=== PATIENT | female | born 1955 | race Caucasian/White ===

== ENCOUNTER → 2020-01-24 11:06 | Outpatient (CLI) | payer MEDICARE, OTHER, SELFPAY ==
--- NOTE | ~2020-01-24 | XR_ITS ---
EXAMINATION: XR sternoclavicular joint BI DATE: 01/24/2020 11:37 INDICATION: Right shoulder pain. Lump at the right sternoclavicular joint. TECHNIQUE: PA and left and right oblique views of the sternoclavicular joints were obtained. COMPARISON: Chest radiograph dated 03/15/2008 FINDINGS: Bilateral sternoclavicular joints appear symmetric in normal alignment. No fractures. No cortical ero sions or appreciable hypertrophic change at either sternoclavicular joint. Visualized bilateral upper lung zones are clear with no pneumothorax. Severe cervical spondylosis. IMPRESSION: 1. Symmetric unremarkable bilateral sternoclavicular joints. Reviewed, dictated and finalized at location A.
== END ==
PROVIDERS: PCP Internal Medicine; Visit Provider Internal Medicine
DX: M25.511 Pain in right shoulder (principal)
CPT/HCPCS: 71130

== ENCOUNTER 2020-03-12 09:33 | Outpatient (CLI) | payer MEDICARE, OTHER, SELFPAY ==
--- NOTE | ~2020-03-12 | MM_ITS ---
EXAMINATION: MM screening herbie BI w oliva HISTORY: Screening TECHNIQUE: Craniocaudal and mediolateral oblique 3-D tomosynthesis images were obtained and synthetic 2-D images were generated. CAD analysis was submitted and interpreted. COMPARISON: Comparison to multiple prior studies sequentially, with oldest reviewed study dated 05/08. BREAST PARENCHYMAL COMPOSITION: There are scattered areas of fibroglandular density. FINDINGS: There is no evidence of suspicious mass, calcification, or architectural distortion to sugg est malignancy in either breast. There has been no suspicious interval change. IMPRESSION: 1. No mammographic evidence of malignancy. 2. Recommend routine screening mammography in one year. BI-RADS Category 1: Negative Reviewed, dictated and finalized at location A.
--- NOTE | ~2020-03-12 | DEXA_ITS ---
Bone Density Report Name: Emma Monteiro Age: 64 Sex: Female Ethnicity: White Date of : 1955 Indication: postmenopausal; Referring Provider: JOHNATHON HEMPHILL Study: Bone densitometry was performed. Exam Date: March 12, 2020 Accession number: [id number] Bone Density: Region BMD T-score Z-score Classification AP Spine (L1, L3) 1.454 4.0 5.8 Normal Femoral Neck (Left) 0.812 -0.3 1.3 Normal Total Hip (Left) 1.081 1.1 2.5 Normal Total Hip Bilateral Avg 1.082 1.1 2.5 Normal Femoral Neck (Right) 0.866 0.2 1.8 Normal Total Hip (Right) 1.082 1.1 2.5 Normal World Health Organization criteria for BMD impression classify patients as: Normal (T-score at or above -1.0), Osteopenia (T-score between -1.0 and -2.5), or Osteoporosis (T-score at or below -2.5). 10-year Fracture Risk: FRAX not reported because: All T-scores for Spine Total, Hip Total, Femoral Neck at or above -1.0 Previous Exams: Region Exam Age BMD T-score BMD Change BMD Change Date g/cm2 vs Baseline vs Previous AP Spine(L1, L3) 03/12/2020 64 1.454 4.0 -0.029(-2.0%)# 0.020(1.4%)# 07/05/2011 56 1.434 3.8 -0.049(-3.3%)# -0.049(-3.3%)# 08/12/2008 53 1.484 4.3 Total Hip(Left) 03/12/2020 64 1.081 1.1 -0.080(-6.9%)# 0.003(0.2%) 05/25/2015 60 1.078 1.1 -0.083(-7.1%)# 0.014(1.3%)# 07/05/2011 56 1.064 1.0 -0.097(-8.4%)# -0.097(-8.4%)# 08/12/2008 53 1.161 1.8 Total Hip(Right) 03/12/2020 64 1.082 1.1 -0.034(-3.0%)# 0.028(2.7%)* 05/25/2015 60 1.054 0.9 -0.062(-5.5%)# -0.016(-1.5%)# 07/05/2011 56 1.070 1.0 -0.046(-4.1%)# -0.046(-4.1%)# 08/12/2008 53 1.116 1.4 *Denotes significance at 95% confidence level, LSC for AP Spine = 0.022 g/cm2, LSC for Total Hip = 0.027 g/cm2 Clinical Information Provided by Patient: Patient maximum height was 62 Menopause Age: 55 Drinks caffeinated beverages Onset of menses at age 10 Number of children 2 Impression: The patient has normal bone mass. No significant bone loss was observed. Discussion: BONE DENSITY IS ABOVE THE MINIMUM DESIRABLE LEVEL AT ALL SKELETAL SITES TESTED. This patient?s bone mineral density is above the minimum desirable level (T-score -1.0 or better) at all sites measured. The patient should follow a healthful lifestyle (good nutrition with adequate calcium and vitamin D, and appropriate weight-bearing exercise). Follow-Up: Consider repeating this study in
== END 2020-03-12 09:34 | disposition home or self-care (01) ==
PROVIDERS: PCP Internal Medicine; Visit Provider Obstetrics & Gynecology
DX: Z12.31 Encounter for screening mammogram for malignant neoplasm of breast (principal); Z78.0 Asymptomatic menopausal state; Z13.820 Encounter for screening for osteoporosis
CPT/HCPCS: 77063; 77067; 77080

== ENCOUNTER → 2020-08-31 06:57 | Outpatient (CLI) | payer MEDICARE, OTHER, SELFPAY ==
[2020-09-01 01:42] LABS: SARS-CoV-2 RNA PCR Negative
== END ==
DX: Z01.812 Encounter for preprocedural laboratory examination (principal); Z20.822 Contact with and (suspected) exposure to COVID-19
CPT/HCPCS: C9803; U0003; U0005

== ENCOUNTER 2021-03-12 09:01 | Outpatient (CLI) | payer MEDICARE, OTHER, SELFPAY ==
--- NOTE | ~2021-03-12 | MM_ITS ---
EXAMINATION: MM screening herbie BI w oliva HISTORY: Screening mammogram, family history of breast cancer in her mother. TECHNIQUE: Craniocaudal and mediolateral oblique 3-D tomosynthesis images were obtained and synthetic 2-D images were generated. CAD analysis was submitted and interpreted. COMPARISON: 03/12/2020, 10/27/2018, 06/09/2017 BREAST PARENCHYMAL COMPOSITION: The breasts are heterogeneously dense, which may obscure small masses . FINDINGS: There is no evidence of suspicious mass, calcification, or architectural distortion to sugg est malignancy in either breast. There has been no suspicious interval change. IMPRESSION: 1. No mammographic evidence of malignancy. 2. Recommend routine screening mammography in one year. BI-RADS Category 1: Negative Reviewed, dictated and finalized at location A.
== END 2021-03-12 09:02 | disposition home or self-care (01) ==
LOC: ANHIMG 09:03
PROVIDERS: Visit Provider Obstetrics & Gynecology
DX: Z12.31 Encounter for screening mammogram for malignant neoplasm of breast (principal)
CPT/HCPCS: 77063; 77067

== ENCOUNTER → 2021-05-14 10:39 | Outpatient (CLI) | payer MEDICARE, OTHER, SELFPAY ==
--- NOTE | ~2021-05-14 | XR_ITS ---
EXAMINATION: XR thoracic spine 3V, XR lumbar spine 2-3V DATE: 05/14/2021 11:05 INDICATION: Diffuse back pain. TECHNIQUE: 1. One AP, lateral and lateral swimmer's views of the thoracic spine were obtained. 2. AP, lateral and coned-down lateral lumbosacral views of the lumbar spine were obtained. COMPARISON: CT abdomen and pelvis dated 05/18/2019 FINDINGS: Unchanged mild thoracolumbar kyphosis with chronic mild anterior wedging at T11-L1. 6 mm retrolisthes is L2 on L3 and 2-3 mm retrolisthesis L3 on L4. Schmorl's node along the superior endplate of L1. Mul tilevel thoracic disc height loss, moderate severity in the upper thoracic spine and mild in the lowe r thoracic spine. Severe disc height loss at L2-L3 and moderate disc height loss at T12-L1 and L3-L4. Mild disc height loss at the remaining lumbar levels. Multilevel severe lumbar facet osteoarthritis. Mild bilateral hip and sacroiliac osteoarthritis. Lungs are clear with no focal airspace opacities, pulmonary edema, pleural effusion or pneumothorax. Cardiomediastinal silhouette is normal. Normal bow el gas pattern. IMPRESSION: 1. Kyphosis at the thoracolumbar junction with chronic mild anterior wedging at T11-L1. 2. Mild to moderate thoracic and moderate to severe lumbar spondylosis. Reviewed, dictated and finalized at location B. E INFORMATICS EDUCATOR IMPRESSION: 1. Kyphosis at the thoracolumbar junction with chronic mild anterior wedging at T11-L1. 2. Mild to moderate thoracic and moderate to severe lumbar spondylosis.
== END ==
PROVIDERS: PCP Internal Medicine; Visit Provider Internal Medicine
DX: R10.9 Unspecified abdominal pain (principal); M47.894 Other spondylosis, thoracic region; M47.896 Other spondylosis, lumbar region
CPT/HCPCS: 72072; 72100

== ENCOUNTER → 2022-04-28 11:15 | Outpatient (CLI) | payer MEDICARE, OTHER, SELFPAY ==
--- NOTE | ~2022-04-28 | MM_ITS ---
EXAMINATION: MM screening herbie BI w oliva HISTORY: Screening mammogram TECHNIQUE: Craniocaudal and mediolateral oblique 3-D tomosynthesis images were obtained and synthetic 2-D images were generated. CAD analysis was submitted and interpreted. COMPARISON: 03/12/2021, 03/12/2020 10/27/2018 bilateral screening mammogram examinations... BREAST PARENCHYMAL COMPOSITION: There are scattered areas of fibroglandular density. FINDINGS: Right breast: There is a new 4 mm mass in the posterior upper outer right breast since 03/12. Diagnostic right mammogram and right breast ultrasound examination are recommended. Left breast: There is no evidence of suspicious mass, calcification, or architectural distortion to s uggest malignancy in either breast. There has been no suspicious interval change. IMPRESSION: 1. New 4 mm mass in posterior upper outer right breast 2. Diagnostic right mammogram and right breast ultrasound examination are recommended BI-RADS Category 0: Incomplete: Needs additional imaging evaluation. Reviewed, dictated and finalized at location A. OYMENT INSTRUCTIONAL ASSOCIATE IMPRESSION: 1. New 4 mm mass in posterior upper outer right breast 2. Diagnostic right mammogram and right breast ultrasound examination are recom mended BI-RADS Category 0: Incomplete: Needs additional imaging evaluation.
== END ==
PROVIDERS: PCP Internal Medicine; Visit Provider Obstetrics & Gynecology
DX: Z12.31 Encounter for screening mammogram for malignant neoplasm of breast (principal); R92.8 Other abnormal and inconclusive findings on diagnostic imaging of breast
CPT/HCPCS: 77063; 77067

== ENCOUNTER 2022-05-27 11:55 | Outpatient (CLI) | payer MEDICARE, OTHER, SELFPAY ==
--- NOTE | ~2022-05-27 | MMUS_ITS ---
EXAMINATION: MM diagnostic herbie RT w oliva, US breast RT limited HISTORY: Right breast mass TECHNIQUE: Additional 3-D tomosynthesis images of the right breast were performed and synthetic 2-D i mages were generated. CAD analysis was submitted and interpreted. High resolution limited right breas t ultrasound was performed. COMPARISON: Comparison to multiple prior studies sequentially, with oldest reviewed study dated 07/2017. BREAST PARENCHYMAL COMPOSITION: Breast composed of scattered areas of fibroglandular density FINDINGS: MAMMOGRAPHIC FINDINGS: There is a mass in the upper outer quadrant of the right breast posteriorly, most likely benign intra mammary lymph node. There is a small mass laterally and anteriorly in the right breast on CC view. ULTRASOUND: Limited right breast ultrasound: At 9:00, 1 cm from the nipple there is a 4 mm cyst corresponding to the anterior mass seen on CC view. No definite sonographic correlate to the mass in the upper outer q uadrant of the right breast measuring 5 mm. IMPRESSION: 1. Probable benign right breast mass in the upper outer quadrant. No sonographic correlate. 2. Recommend 6 month follow-up diagnostic right mammogram BI-RADS category 3, probably benign findings. Reviewed, dictated and finalized at location A. CH LANG PATH IMPRESSION: 1. Probable benign right breast mass in the upper outer quadrant. No sonographi c correlate. 2. Recommend 6 month follow-up diagnostic right mammogram BI-RADS category 3, probably benign findings.
== END 2022-05-27 11:56 | disposition home or self-care (01) ==
PROVIDERS: PCP Internal Medicine; Visit Provider Obstetrics & Gynecology Gynecology
DX: R92.8 Other abnormal and inconclusive findings on diagnostic imaging of breast (principal)
CPT/HCPCS: 76642; 77061; 77065; G0279

== ENCOUNTER 2022-06-27 07:55 | Outpatient (CLI) | payer MEDICARE, OTHER, SELFPAY ==
--- NOTE | ~2022-06-27 | DEXA_ITS ---
Bone Density Report Name: PINKY GARG Age: 67 Sex: Female Ethnicity: Elian Date of : 1955 Indication: postmenopausal; screening for osteoporosis; height loss; Referring Provider: ELIANA CASEY Study: Bone densitometry was performed. Exam Date: June 27, 2022 Accession number: [id number] Bone Density: Region BMD T-score Z-score Classification AP Spine(L1-L4) 1.598 5.0 7.1 Normal Femoral Neck (Left) 0.843 -0.1 1.7 Normal Total Hip (Left) 1.027 0.7 2.2 Normal Femoral Neck (Right) 0.920 0.6 2.4 Normal Total Hip (Right) 1.006 0.5 2.0 Normal Total Hip Mean 1.016 0.6 2.1 Normal World Health Organization criteria for BMD impression classify patients as: Normal (T-score at or above -1.0), Osteopenia (T-score between -1.0 and -2.5), or Osteoporosis (T-score at or below -2.5). 10-year Fracture Risk: FRAX not reported because: All T-scores for Spine Total, Hip Total, Femoral Neck at or above -1.0 Previous Exams: Region Exam Age BMD T-score BMD Change BMD Change Date g/cm2 vs Baseline vs Previous Total Hip(Left) 06/27/2022 67 1.027 0.7 -0.051 (-4.7%) -0.053 (-4.9%) 03/12/2020 64 1.081 1.1 0.003 (0.2%) 0.003 (0.2%) 05/25/2015 60 1.078 1.1 Total Hip(Right) 06/27/2022 67 1.006 0.5 -0.049 (-4.6%) -0.077 (-7.1%) 03/12/2020 64 1.082 1.1 0.028 (2.7%)* 0.028 (2.7%)* 05/25/2015 60 1.054 0.9 *Denotes significance at 95% confidence level, LSC for Total Hip = 0.027 g/cm2 Clinical Information Provided by Patient: Has used the following medications: Vitamin D Patient maximum height was 63 Menopause Age: 55 Onset of menses at age 10 Number of children 2 Impression: The patient has normal bone mass. The BMD for the Total Hip(Left) decreased, changing by -4.9% since the last DXA exam. The BMD for the Total Hip(Right) decreased, changing by -7.1% since the last DXA exam. Discussion: BONE DENSITY IS ABOVE THE MINIMUM DESIRABLE LEVEL AT ALL SKELETAL SITES TESTED. This patient?s bone mineral density is above the minimum desirable level (T-score -1.0 or better) at all sites measured. The patient should follow a healthful lifestyle (good nutrition with adequate calcium and vitamin D, and appropriate weight-bearing exercise). Follow-Up: Consider repeating this study in 3 to 4 years to reassess this patient's status, or sooner if there is some new clinical indication. Reported by: [facility] on 06/27/2022 8:19:00 AM.
== END 2022-06-27 07:56 | disposition home or self-care (01) ==
LOC: ANHIMG 07:57
PROVIDERS: PCP Internal Medicine; Visit Provider Internal Medicine
DX: Z78.0 Asymptomatic menopausal state (principal)
CPT/HCPCS: 77080

== ENCOUNTER 2022-11-20 11:47 | Outpatient (CLI) | payer MEDICARE, OTHER, SELFPAY ==
--- NOTE | ~2022-11-20 | MMUS_ITS ---
EXAMINATION: MM diagnostic herbie RT w oliva, US breast RT limited HISTORY: Six-month follow-up of abnormal mammogram TECHNIQUE: Full field and spot ML, MLO and CC 3-D tomosynthesis images of the right wrist were perfor med and synthetic 2-D images were generated. CAD analysis was submitted and interpreted. High resolut ion targeted posterior upper outer quadrant right breast ultrasound was performed. COMPARISON: 05/27/2022 diagnostic right mammogram and limited right breast ultrasound 04/28/2022, 03/12/2021 bilateral screening mammogram examinations BREAST PARENCHYMAL COMPOSITION: There are scattered areas of fibroglandular density. FINDINGS: MAMMOGRAPHIC FINDINGS: Incompletely circumscribed suspicious 6 mm posterior upper outer quadrant right breast mass is noted. ULTRASOUND: 9:00 1 cm from nipple: Stable parallel benign-appearing circumscribed 3.9 x 1.9 x 3.6 mm solid lesion without internal vascularity or posterior shadowing 11:00 9 cm from nipple: Suspicious and typed-parallel irregular hypoechoic mass measuring approximate ly 4.9 x 6 x 6 mm dimension. This is very suspicious for malignancy. Ultrasound-guided biopsy is blake mmended. IMPRESSION: 1. Suspicious 6 mm mass at 11:00 9 cm from nipple 2. Ultrasound-guided biopsy of right breast 11:00 lesion is recommended BI-RADS category 4, suspicious findings. Dr. Munroe telephoned the report and ultrasound-guided biopsy recommendation for right breast 11:00 les ion on 11/20/2022 at 1255 hours to Nurse Sanders Reviewed, dictated and finalized at location A. IMPRESSION: 1. Suspicious 6 mm mass at 11:00 9 cm from nipple 2. Ultrasound-guided biopsy of right breast 11:00 lesion is recommended BI-RADS category 4, suspicious findings. Dr. Munroe telephoned the report and ultrasound-guided biopsy recommendation for right breast 11:00 lesion on 11/20/2022 at 1255 hours to Nurse Sanders
== END 2022-11-20 11:48 | disposition home or self-care (01) ==
LOC: ANHIMG 11:48
PROVIDERS: PCP Internal Medicine; Visit Provider Obstetrics & Gynecology Gynecology
DX: R92.8 Other abnormal and inconclusive findings on diagnostic imaging of breast (principal)
CPT/HCPCS: 76642; 77061; 77065; G0279

== ENCOUNTER 2023-09-10 15:28 | Emergency (ER) | payer MEDICARE, SELFPAY ==
--- NOTE | 2023-09-10 15:40 | ED.LOWEXIN ---
HPI - Extremity Injury (Lower) General Chief Complaint: Extremity Injury, Lower Stated Complaint: Injured Toe Time Seen by Provider: 09/10/23 16:03 Source: patient, RN notes reviewed and old records reviewed Mode of arrival: ambulatory Limitations: no limitations History of Present Illness HPI Narrative: 68 year old female accompanied by spouse with complaints of stubbing her 2nd right toe on Thursday while they were at [employer]. Patient reports that she is able to move her toe on own power, discomfort is located in nail bed area with nail to 2nd right toe barely attached. Patient reports that she had sandals on and stubbed her toe hitting the nail of her 2nd right toe causing it to get pulled back at the bed. Patient reports that she has been taking Tylenol for her discomfort, Patient has some bruising to her right dorsal distal 2nd toe. Patient voices concern for infection to right 2nd toe. MD complaint: other (right 2nd toe) Onset (ago): day(s) (2 days ago) Injury: Right: toes (right 2nd toe nail barely attached) Type of Injury: other (nail loose right 2nd toe) Place: street/outdoors Severity scale (1-10): 1 Relieving factors: rest Exacerbating factors: palpation Associated symptoms: other (pain) Treatments prior to arrival: other (Tylenol) Related Data Home Medications Medication Instructions Recorded Confirmed anastrozole 1 mg tablet 1 mg PO DAILY 09/10/23 09/10/23 buspirone 7.5 mg tablet 7.5 mg PO DAILY 09/10/23 09/10/23 leflunomide 10 mg tablet 10 mg PO DAILY 09/10/23 09/10/23 losartan 50 mg tablet 50 mg PO DAILY 09/10/23 09/10/23 tramadol 50 mg tablet 50 mg PO Q12H PRN Pain, Moderate 09/10/23 09/10/23 venlafaxine 37.5 mg 37.5 mg PO DAILY 09/10/23 09/10/23 capsule,extended release 24 hr Allergies Allergy/AdvReac Type Severity Reaction Status Date / Time No Known Allergies Allergy Unknown Verified 09/10/23 15:40 Review of Systems Review of Systems: CONSTITUTIONAL: Denies fever, chills, or sweats. EYES: Denies visual changes, redness, or discharge. ENT: Denies rhinorrhea, congestion, sore throat, or otalgia. CARDIOVASCULAR: Denies chest pain, palpitations, or edema. RESPIRATORY: Denies cough or dyspnea. GASTROINTESTINAL: Denies abdominal pain, nausea, vomiting, or diarrhea. GENITOURINARY: Denies dysuria or hematuria. SKIN: Denies rash or itching. Toe nail of right 2nd toe loose at the nail bed, barely attached, patient reports that she is able to move toe on own power with some bruising at the dorsal aspect of distal right 2nd toe above nail bed. MUSCULOSKELETAL: Denies back pain, joint pain, or myalgia. NEUROLOGIC: Denies headache, numbness, or weakness. PSYCHIATRIC: Positive for history of anxiety or depression. All systems reviewed & are unremarkable except as noted in HPI and below PMFSH Past Medical History Medical History Breast cancer Diet-controlled diabetes mellitus History of anxiety Hypertension Rheumatoid arthritis Surgical History Surgical History History of section History of left cataract surgery and retina repair History of partial mastectomy Family History Family History Grandparent Diabetes mellitus Mother Family history of obesity Family history of malignant neoplasm of breast Social History Social History Smoking status: Never smoker Second hand tobacco smoke exposure: No Alcohol intake: current Gender identity (if verbalized by the patient): Female Comments At time of signature, agree with nursing past medical, surgical, social and family history. There is no relevant family history pertinent to the presenting complaint Exam Narrative: GENERAL: Well-appearing, well-nourished, and in no acute distress. HEAD: Normocephalic, atra
[2023-09-10 15:50] VITALS: BP 156/80; PULSE 74; RESP 16; TEMP 36.8; O2SAT 96
== END 2023-09-10 16:13 | disposition home or self-care (01) ==
PROVIDERS: Emergency Provider Registered Nurse; PCP Internal Medicine
DX: S99.921A Unspecified injury of right foot, initial encounter (principal); X58.XXXA Exposure to other specified factors, initial encounter; E11.9 Type 2 diabetes mellitus without complications; I10 Essential (primary) hypertension; M06.9 Rheumatoid arthritis, unspecified; Z85.3 Personal history of malignant neoplasm of breast; Z90.10 Acquired absence of unspecified breast and nipple; F41.9 Anxiety disorder, unspecified
CPT/HCPCS: 11750; 99213; G0463

== ENCOUNTER 2024-06-27 14:49 | Outpatient (CLI) | payer MEDICARE, SELFPAY ==
--- NOTE | ~2024-06-27 | US_ITS ---
EXAMINATION: US thyroid DATE: 06/27/2024 15:08 INDICATION: Left-sided thyroid nodule TECHNIQUE: Multiple ultrasound images of the thyroid were obtained. COMPARISON: None. FINDINGS: The right thyroid lobe measures 5.7 x 2.2 x 2.1 cm. Within the lower pole of the right lobe of the thyroid gland is a 14 x 12 x 15 mm nodule: Composition - mixed cystic and solid (1) Echogenicity -hypoechoic (1) Shape - wider than tall Margin - smooth Echogenic foci - none. = TR2 not suspicious. No FNA Within the lower pole of the right lobe of the thyroid gland is a 11 x 7 x 7 mm nodule: Composition - mixed cystic and solid (1) Echogenicity -hypoechoic (1) Shape - wider than tall Margin - smooth Echogenic foci - none. = TR2 not suspicious. No FNA Within the mid pole of the right lobe of the thyroid gland is a 16 x 15 x 15 mm nodule: Composition - solid or almost completely solid (2) Echogenicity - hyperechoic or isoechoic (1) Shape - wider than tall Margin - smooth Echogenic foci - none. = TR3 mildly suspicious. FNA if greater than 2.5 cm. Follow if greater than 1.5 cm. The left thyroid lobe measures 4.4 x 1.9 x 1.5 cm. Within the mid pole of the left lobe of the thyroid gland is a 17 x 13 x 12 mm nodule: Composition - spongiform Echogenicity - hyperechoic or isoechoic (1) Shape - wider than tall Margin -ill-defined Echogenic foci - none. = TR1 benign, no FNA. The isthmus measures 0.95cm in anterior to posterior dimension. Within the isthmus is a 16 x 15 x 15 mm nodule: Composition - solid or almost completely solid (2) Echogenicity - hyperechoic or isoechoic (1) Shape - wider than tall Margin - smooth Echogenic foci - none. = TR3 mildly suspicious. FNA if greater than 2.5 cm. Follow if greater than 1.5 cm. There is otherwise normal echotexture and echogenicity throughout the remainder of the thyroid gland. No additional discrete nodules are identified. Normal vascular flow is present. IMPRESSION: Two TR2 nodules in the right lobe of the thyroid gland. These nodules are not sonographically suspicious and no FNA is recommended A single TR 1 nodule within the left lobe of the thyroid gland. This nodule is benign. No FNA or follow-up is recommended A single TR 3 nodule is identified within the isthmus measuring 16 mm in greatest dimension. This nodule is mildly suspicious. Follow-up (not FNA) is recommended, based on size criteria. Reviewed, dictated and finalized at location A. ISH MAKER HELPER IMPRESSION: Two TR2 nodules in the right lobe of the thyroid gland. These nodules are not sonographically suspicious and no FNA is recommended A single TR 1 nodule within the left lobe of the thyroid gland. This nodule is benign. No FNA or follow-up is recommended A single TR 3 nodule is identified within the isthmus measuring [address] dimension. This nodule is mildly suspicious. Follow-up (not FNA) is recommended, based on size criteria.
== END 2024-06-27 14:50 | disposition home or self-care (01) ==
PROVIDERS: Visit Provider Internal Medicine
DX: E04.2 Nontoxic multinodular goiter (principal)
CPT/HCPCS: 76536

== ENCOUNTER 2024-09-01 15:00 | Outpatient (CLI) | payer MEDICARE, SELFPAY ==
--- NOTE | ~2024-09-01 | DEXA_ITS ---
Bone Density Report Name: PINKY GARG Age: 69 Sex: Female Ethnicity: Elian Date of : 1955 Indication: postmenopausal; screening for osteoporosis; height loss; cancer; Referring Provider: ELIANA CASEY Study: Bone densitometry was performed. Exam Date: September 01, 2024 Accession number: [id number] Bone Density: Region BMD T-score Z-score Classification AP Spine(L1-L4) 1.614 5.2 7.3 Normal Femoral Neck (Left) 0.832 -0.2 1.7 Normal Total Hip (Left) 1.021 0.6 2.2 Normal Femoral Neck (Right) 0.928 0.7 2.6 Normal Total Hip (Right) 1.029 0.7 2.3 Normal Total Hip Mean 1.025 0.7 2.3 Normal World Health Organization criteria for BMD impression classify patients as: Normal (T-score at or above -1.0), Osteopenia (T-score between -1.0 and -2.5), or Osteoporosis (T-score at or below -2.5). 10-year Fracture Risk: FRAX not reported because: All T-scores for Spine Total, Hip Total, Femoral Neck at or above -1.0 Previous Exams: Region Exam Age BMD T-score BMD Change BMD Change Date g/cm2 vs Baseline vs Previous AP Spine (L1-L4) 09/01/2024 69 1.614 5.2 0.016 (1.0%) 0.016 (1.0%) 06/27/2022 67 1.598 5.0 Total Hip(Left) 09/01/2024 69 1.021 0.6 -0.057 (-5.3%) -0.006 (-0.6%) 06/27/2022 67 1.027 0.7 -0.051 (-4.7%) -0.053 (-4.9%) 03/12/2020 64 1.081 1.1 0.003 (0.2%) 0.003 (0.2%) 05/25/2015 60 1.078 1.1 Total Hip(Right) 09/01/2024 69 1.029 0.7 -0.025 (-2.4%) 0.023 (2.3%) 06/27/2022 67 1.006 0.5 -0.049 (-4.6%) -0.077 (-7.1%) 03/12/2020 64 1.082 1.1 0.028 (2.7%)* 0.028 (2.7%)* 05/25/2015 60 1.054 0.9 *Denotes significance at 95% confidence level, LSC for AP Spine = 0.022 g/cm2, LSC for Total Hip = 0.027 g/cm2 Clinical Information Provided by Patient: Has used the following medications: Vitamin D, Calcium Has the following medical conditions: Cancer Patient maximum height was 63 Menopause Age: 55 Onset of menses at age 10 Number of children 2 Impression: The patient has normal bone mass. No significant bone loss was observed. Discussion: BONE DENSITY IS ABOVE THE MINIMUM DESIRABLE LEVEL AT ALL SKELETAL SITES TESTED. This patient?s bone mineral density is above the minimum desirable level (T-score -1.0 or better) at all sites measured. The patient should follow a healthful lifestyle (good nutrition with adequate calcium and vitamin D, and appropriate weight-bearing exercise). Follow-Up: Consider repeating this study in 5 years or sooner if there is some new clinical indication. Reported by: ERIC on 09/01/2024 3:35:00 PM. Reviewed, dictated and finalized at location AAlejandro COOK
--- OUTSIDE RECORDS SUMMARY | 2024-09-01 15:52 | XMS_ITS | Clinical Summary ---
Author Organization [facility] Address [address] [place] [address] Care Team Providers Care 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 Name Role Phone Cuca Plummer MD Unavailable [phone] Claudia Renee MD Unavailable [phone] Lizzy Lazcano NP Unavailable Kirti Degroot MD PhD Unavaila ble Peter Waters MD Unavailable Elis Staton MD Unavailable Ángel Nino MD Unavailable [phone] Elis Staton MD Primary Care Provider [phone] Gin Gauthier PhD Unavailable [phone] Allergies Active Allergy Reactions Criticality Noted Date Comments Black [place] Hives Medium 12/02/2022 Black Walnuts Husks Wheat Bran Eye irritation Low 09/03/2020 Allergic to wheat plant and the grain Medications losartan (COZAAR) 50 mg tabletIndicati ons:hypertensi on Take 1 tablet (50 mg total) by mouth every morning Active simvastatin (ZOCOR) 20 mg tabletIndicati ons:hyperlipid emia Take 1 tablet (20 mg total) by mouth nightly Active cholecalcifero l (VITAMIN D-3) 1,000 unit capsuleIndicat ions:Vitamin D Deficiency Take 1 capsule (1,000 Units total) by mouth daily after lunch Active cetirizine (ZyrTEC) 10 mg tabletIndicati ons:Allergic Rhinitis Take 1 tablet (10 mg total) by mouth every morning Active traMADoL (ULTRAM) 50 mg tabletIndicati ons:Pain Take 1 tablet (50 mg total) by mouth every 6 (six) hours as needed for pain Active aspirin 81 mg enteric coated tabletIndicati ons:prevention of thrombosis Take 1 tablet (81 mg total) by mouth every other day At night Active calcium carbonate-ramone min D3 1500 mg (600 mg elemental) -200 units per tabletIndicati ons:Hypocalcem ia Prevention Take 1 tablet by mouth every morning Active leflunomide (ARAVA) 10 mg tabletIndicati ons:Rheumatoid Arthritis Take 2 tablets (20 mg total) by mouth daily Active exemestane (AROMASIN) 25 mg tabletIndicati ons:Malignant neoplasm of upper-outer quadrant of right breast in female, estrogen receptor positive (HCC) Take 1 tablet (25 mg total) by mouth daily Take after a meal. 30 tablet 08/26/19 25 026 Active metFORMIN (GLUCOPHAGE) 500 mg tablet Take 1 tablet (500 mg total) by mouth 06/27/19 25 Active EPINEPHrine 0.3 mg/0.3 mL auto-injection syringe As needed 06/23/19 25 Active ondansetron (ZOFRAN) 4 mg tablet As needed 06/23/19 25 Active prednisoLONE sodium phosphate (INFLAMASE FORTE) 1 % ophthalmic solution Administer 1 drop into the right eye 3 (three) times a day Active venlafaxine XR (EFFEXOR-XR) 75 mg 24 hr capsule Take 1 capsule (75 mg total) by mouth daily 90 capsule 08/26/19 25 Active venlafaxine XR (EFFEXOR-XR) 75 mg 24 hr capsule Take 1 capsule (75 mg total) by mouth daily 30 capsule 09/22/19 24 025 Discontinued exemestane (AROMASIN) 25 mg tabletIndicati ons:Malignant neoplasm of upper-outer quadrant of right breast in female, estrogen receptor positive (HCC) Take 1 tablet (25 mg total) by mouth daily Take after a meal. 30 tablet 11/26/19 24 025 Discontinued(Re order) venlafaxine XR (EFFEXOR-XR) 75 mg 24 hr capsule TAKE 1 CAPSULE BY MOUTH DAILY 90 capsule 3 08/17/19 25 025 Discontinued(Re order) Active Problems Problem Noted Date Diagnosed Date History of partial mastectomy of right breast Radiotherapy follow-up examination 04/28/2023 Malignant neoplasm of upper- outer quadrant of right breast in female, estrogen receptor positive 01/26/2023 Cancer Staging:Pathologic stage from 02/13/2023:Stage IA(pT1c, pN0(sn), cM0, G2, ER+, CA+, HER2-) - Signed by Ángel Nino MD on 03/18/2023 Mass of upper outer quadrant of right breast Abnormal mammogram 12/03/2022 Encounters Date Type Department Care Team Description 08/26/[address] [facility] Bone Marrow Transplant [address] [place] [phone] Sindi Dick CMA 08/25/2024 10:00 AM CDT Office Visit 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 Oncology [address] [place] [phone] Malignant neoplasm of upper-outer quadrant of right breast in female, estrogen receptor positive (HCC) 06/27/2024 Orders Only [facility] Scanning, Provider 06/27/2024 Orders Only [facility] INFECTIOUS DISEASE Scanning, Provider from Last 3 Months Immunizations Immunization Administration Dates Next Due COVID-19 MRNA (MODERNA) .5 M L (50 MCG) VACCINE (12 YEARS AND UP) 03/03/2023 Hep B Vaccine 06/07/1997 Influenza, Quad, Adjuvantate d, Intramuscular 02/25/2021,02/12/2020 Influenza, Quadrivalent, Sobeida l Culture-based MDCK, Preservative Free, Antibiotic Free, Intramuscular 03/30/2017 Influenza, Quadrivalent, Hig h Dose, Preservative Free, Intrr 03/24/2022 Influenza, Trivalent, High D ose, Split, Preservative Free, Intramuscular 04/10/2018 Influenza, Trivalent, Preser vative Free, Intramuscular 04/27/2016 Influenza, Unspecified 02/28/2023,03/22/2020,10/2019 Moderna Sars-cov-2 Monovalen t Booster Vaccination .25 Ml dose (12+ YRS) 10/22/2021,04/14/2021 Pfizer SARS-CoV-2 Monovalent Vaccination (12+ Yrs) PURPLE 10/19/2022,03/23/2022 Pneumococcal Conjugate PCV 13 03/21/2020 Pneumococcal Polysaccharide PPV23 03/28/2021 RSV IGIV 06/12/2023 Sars-CoV-2, Unspecified 08/26/2020,07/25/2020 ZOSTER Recombinant 02/12/2020 Zoster, unspecified 02/11/2020,11/17/2019 Surgical History Surgery Date Site/Laterality Comments SECTION 06/08/1978 - 06/07/1979 EYE SURGERY 06/08/2020 - 06/07/2021 Left CATARACT EXTRACTION 06/08/2021 - 06/07/2022 lens placed BREAST BIOPSY 12/17/2022 Right TOENAIL EXCISION 09/10/2023 Right CATARACT EXTRACTION 08/06/2024 - 09/05/2024 Medical History Medical History Date Comments Hypertension Diabetes mellitus (HCC) Overweight Arthritis PONV (postoperative nausea and vomiting) Motion sickness Breast cancer (HCC) Family History Medical History Relation Name Comments Alive 65y , CAD S/p CABG x4 at age 64y Brother 1 Breast cancer Mother M, age 70y, DVT & PE Mother Breast cancer Mother's Sister Liver cancer Paternal Grandfather Alive , 58y, PAD, DVT, S/p H eart Valve Replacement (had fungal infection) Sister Relation Name Status Comments Brother 1 Alive Brother 2 Alive Mother Mother's Sister Paternal Grandfather Sister Alive Social History Tobacco Use Types Packs/Day Years Used Date Smoking Tobacco: Never Smokeless Tobacco: Never Tobacco Cessation:Counseling Given: Not Answered Social Connection and Isolat ion Panel [NHANES] Answer Date Recorded In a typical week, how many times do you talk on the phone with family, friends, or neighbors? More than three times a week 08/24/2024 How often do you get togethe r with friends or relatives? Three times a week 08/24/2024 How often do you attend chur ch or congregational services? 1 to 4 times per year 08/24/2024 Do you belong to any clubs o r organizations such as zoroastrianism groups, unions, fraternal or athletic groups, or school groups? Yes 08/24/2024 How often do you attend meet ings of the clubs or organizations you belong to? 1 to 4 times per year 08/24/2024 Are you , , di vorced, , never , or living with a partner? 08/24/2024 AUDIT-C Answer Date Recorded Q1: How often do you have a drink containing alc ohol? 2-4 times a month 03/19/2023 Q2: How many drinks containi ng alcohol do you have on a typical day when you are drinking? 1 or 2 03/19/2023 Q3: How often do you have si x or more drinks on one occasion? Never 03/19/2023 Overall Financial Resource Strain (CARDIA) Answe r Date Recorded How hard is it for you to pa y for the very basics like food, housing, medical care, and heating? Not hard at all 08/24/2024 PHQ-2 Answer Date Recorded Patient Health Questionnaire-2 Score 0 08/24/2024 [facility] Occupational Stress Questionnaire Answer Date Recorded Do you feel stress - tense, restless, nervous, or anxious, or unable to sleep at night because your mind is troubled all the time - these days? Not at all 08/24/2024 Exercise Vital Sign Answer Date Recorde d On average, how many days pe r week do you engage in moderate to strenuous exercise (like a brisk walk)? 4 days 08/24/2024 On average, how many minutes do you engage in exercise at this level? 30 min 08/24/2024 Hunger Vital Sign Answer Date Recorded Within the past 12 months, y ou worried that your food would run out before you got the money to buy more. Never true 08/25/19 25 Within the past 12 months, t he food you bought just didn't last and you didn't have money to get more. Never true 08/24/2024 PRAPARE - Transportation Answer Date Re corded In the past 12 months, has l ack of transportation kept you from medical appointments or from getting medications? No 08/06 In the past 12 months, has l ack of transportation kept you from meetings, work, or from getting things needed for daily living? No 08/24/2024 Housing Stability Vital Sign Answer Shay e Recorded In the last 12 months, was t here a time when you were not able to pay the mortgage or rent on time? No 08/26/2023 In the last 12 months, how many places have you lived? 1 08/26/2023 In the last 12 months, was t here a time when you did not have a steady place to sleep or slept in a fdc (including now)? No 08/26/2023 Personal Safety Answer Date Recorded Have you ever been in or are you currently in a harmful physical or emotional relationship or is someone making you feel afraid or unsafe? 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 Gender Identity Not on file Sexual Orientation Not on file Obstetrics History Para Term AB IAB SAB Ectopic Multiple Livin g Live Births 3 2 Date Outcome GA Total Labor Labor/2nd/3rd Weight Sex Type Anes PTL Bev A1 A5 Name Clin Para Para Comments Menopause at age 55y Last Filed Vital Signs Vital Sign Reading Time Taken Comments Blood Pressure 121/81 08/25/2024 9:40 AM CDT Pulse 84 08/25/2024 9:40 AM CDT Temperature 36.3 C (97.3 F) 08/25/2024 9:40 AM CDT Respiratory Rate 16 08/25/2024 9:40 AM CDT Oxygen Saturation 95% 08/25/2024 9:40 AM CDT Inhaled Oxygen Concentration - - Weight 73 kg (161 lb) 08/25/2024 9:40 AM CDT Height 154.9 cm (5' 1 ) 08/25/2024 9:40 AM CDT Body Mass Index 30.42 08/25/2024 9:40 AM CDT Plan of Treatment Health Maintenance Due Date Last Done Comments Colon Cancer Screening-Colonoscopy 1955 Osteoporosis Screening-Bone Density Scan 1955 DTaP/Tdap/Td Vaccine (1 - Tdap) 1966 Well Visit 65+ 2018 Zoster Vaccine (2 of 2) 04/08/2020 02/12/20 20, 02/11/2020, 11/17/2019 Covid-19 Vaccine ( season) 2024 03/03/2023, 10/20/2022, 10/19/2022, Additional history exists Influenza Vaccine (#1) 2024 , 03/24/2022, 02/25/2021, Additional history exists Fall Risk Assessment 03/19/2024 03/19/2023, 02/14/20 Breast Cancer Screening-Mammogram 05/26/2025 024, 05/25/2023 Depression Screening 08/25/2025 08/25/2024, 02/25/2024, 11/26/2023, Additional history exists Hepatitis B Screening Completed 06/07/1997 Pneumococcal vaccine 65+ Completed 03/28/2021, 03/08 Hepatitis C Screening Completed 07/07/2023 Medical Devices Implanted Type Area Director Post Device Identifier Shelf Expiration Date Model / Serial / Lot Bard Peripheral Vascular Ultraclip Bard 17ga 10cm 2 Trigger Permanent Ultrasound [id number] - [id number] - [id number] Implanted:Qty: 1 on 12/17/2022 at [facility] [employer] [id number] 05/05/2025 [id number] / [id number] / Description:RIGHT BREAST 110 0 [id number] [employer] Peripheral V[employer] Marker Breast Ring Shape Radiopaque Nitinol Ultracor Twirl [id number] Uctw17 - [id number] - [id number] Implanted:Qty: 1 on 12/17/2022 at [facility] [employer] [id number] 08/05/2025 [id number] / [id number] / Description:RIGHT BREAST 900 5CMFN [employer] Kaycee 20ga 7.5cm 2 Part Stabilizer Repositionable Depth Hany [id number] - [id number] Implanted:Qty: 1 on 02/13/2023 at [facility] Right: Breast [employer] [id number] 02/13/2027 [id number] / / [id number] Procedures Procedure Name Priority Date/Time Associated Diagnosis Comments EGFR Routine 08/25/2024 9:27 AM CDT Malignant neoplasm of upper-outer quadrant of right breast in female, estrogen receptor positive (HCC) DIFFERENTIAL AUTO Routine 08/25/2024 9:2 7 AM CDT Malignant neoplasm of upper-outer quadrant of right breast in female, estrogen receptor positive (HCC) CBC WITH AUTO DIFFERENTIAL Routine 08/25/2024 9:27 AM CDT Malignant neoplasm of upper-outer quadrant of right breast in female, estrogen receptor positive (HCC) COMPREHENSIVE METABOLIC PANEL Routine 08/25/2024 9:27 AM CDT Malignant neoplasm of upper-outer quadrant of right breast in female, estrogen receptor positive (HCC) SCAN - RADIOLOGY/IMAGING 06/27/2024 SCAN - RADIOLOGY/IMAGING 06/27/2024 DIAGNOSTIC MAMMOGRAM BILATERAL W VIK Schedule Routine, Read Routine (OP Routine) 05/26/2024 1:46 PM APPAREL FASHION DESIGNER Malignant neoplasm of upper-outer quadrant of right breast in female, estrogen receptor positive (HCC) History of partial mastectomy of right breast HEPATITIS C ANTIBODY Routine 07/07/2023 9:36 AM APPAREL FASHION DESIGNER from Last 3 Months or Most Recently Relevant to Health Maintenance Results * eGFR (08/25/2024 9:27 AM CDT) eGFR >90 >=60 mL/min/1. 73 m2 Comment: Interpretive Data Reference Interval Normal >/= 90 mL/min/1.73m2 Mildly decreased* 60 - 89 mL/min/1.73m2 Mildly to moderately decreased 45 - 59 mL/min/1.73m2 Moderately to severely decreased 30 - 44 mL/min/1.73m2 Severely decreased 15 - 29 mL/min/1.73m2 Kidney Failure < 15 mL/min/1.73m2 *Relative to young adult level Estimated glomerular filtration rate is determined by the 2020 CKD-EPI equation recommended by the National Kidney Foundation (A Unifying Approach to GFR Estimation: Recommendations of the NKF-ASK Task Force on Reassessing the Inclusion of Race in Diagnosing Kidney Disease, JASN 2020). The CKD-EPI equation should not be used for patients with unstable renal function and has not been validated in children and those over 70. Current interpretive data was last reviewed 2021. Testing performed by: [facility] [place] [place] [address] Blood 08/25/2024 9:27 AM CDT 08/25/2024 9:27 AM CDT us Peter Waters MD LAB BLOOD ORDERAB LES Final Result [facility] [address] Department [place] [address] * Differential, auto (08/25/2024 9:27 AM CDT) Neutrophil abs 2.5 1.5 - 6.5 K/cumm Comment:Testing performed by : [facility] [place] [place] [address] Imm gran abs 0.0 0.0 - 0.1 K/cumm KEVIN Comment:Testing performed by : [facility] [place] [address] Lymphocyte abs 2.0 0.8 - 3.3 K/cumm KEVIN Comment:Testing performed by : [facility] [place] [address] Monocyte abs 0.5 0.2 - 0.8 K/cumm CERLYNN Comment:Testing performed by : [facility] [place] [address] Eosinophil abs 0.2 0.0 - 0.5 K/cumm KEVIN Comment:Testing performed by : [facility] [place] [address] Basophil abs 0.1 0.0 - 0.1 K/cumm CERLYNN Comment:Testing performed by : [facility] [place] [address] Neutrophil pct 47.8 % CERNER CH Comment: Interpretive Data Percent cell count reference ranges are not reported, since discordance with absolute values may lead to misinterpretation of CBC data. Current Interpretive Data was last revised on 2017. Testing performed by: [facility] [place] [address] Imm gran pct 0.2 % CERNER CH Comment: Interpretive Data Percent cell count reference ranges are not reported, since discordance with absolute values may lead to misinterpretation of CBC data. Current Interpretive Data was last revised on 2017. Testing performed by: [facility] [place] [address] Lymphocyte pct 37.2 % CERNER CH Comment: Interpretive Data Percent cell count reference ranges are not reported, since discordance with absolute values may lead to misinterpretation of CBC data. Current Interpretive Data was last revised on 2017. Testing performed by: [facility] [place] [address] Monocyte pct 9.6 % CERNER CH Comment: Interpretive Data Percent cell count reference ranges are not reported, since discordance with absolute values may lead to misinterpretation of CBC data. Current Interpretive Data was last revised on 2017. Testing performed by: [facility] [place] [address] Eosinophil pct 3.9 % CERNER CH Comment: Interpretive Data Percent cell count reference ranges are not reported, since discordance with absolute values may lead to misinterpretation of CBC data. Current Interpretive Data was last revised on 2017. Testing performed by: [facility] [place] [address] Basophil pct 1.3 % CERNER CH Comment: Interpretive Data Percent cell count reference ranges are not reported, since discordance with absolute values may lead to misinterpretation of CBC data. Current Interpretive Data was last revised on 2017. Testing performed by: [facility] [place] [address] Blood 08/25/2024 9:27 AM CDT 08/25/2024 9:27 AM CDT Peter Waters MD LAB BLOOD ORDERAB LES Final Result [facility] [address] Department [place] [address] * CBC with auto differential (08/25/2024 9:27 AM CDT) WBC 5.3 3.8 - 9.9 K/cumm Comment:Testing performed by : [facility] [place] [address] Hgb 12.2 11.9 - 15.5 g/dL CERNER CH Comment:Testing performed by : [facility] [place] [address] Hct 37.3 35.6 - 45.5 % CERNER CH Comment:Testing performed by : [facility] [place] [address] Plt 249 150 - 400 K/cumm CERNER CH Comment:Testing performed by : [facility] [place] [address] MPV 9.9 9.1 - 12.3 fL CERNER CH Comment:Testing performed by : [facility] [place] [address] RBC 4.12 3.90 - 5.20 M/cumm CERNER CH Comment:Testing performed by : [facility] [place] [address] MCV 90.5 81.3 - 96.4 fL CERNER CH Comment:Testing performed by : [facility] [place] [address] MCH 29.6 27.1 - 33.3 pg CERNER CH Comment:Testing performed by : [facility] [place] [address] MCHC 32.7 32.3 - 35.7 g/dL CERNER CH Comment:Testing performed by : [facility] [place] [address] RDW CV 13.6 11.1 - 14.9 % CERNER CH Comment:Testing performed by : [facility] [place] [address] RDW SD 45.0 35.7 - 48.1 fL CERNER CH Comment:Testing performed by : [facility] [place] [place] [address] NRBC abs 0.00 0.00 - 0.01 K/cumm CERNER CH Comment:Testing performed by : [facility] [place] [address] Blood 08/25/2024 9:27 AM CDT 08/25/2024 9:27 AM CDT Peter Waters MD LAB BLOOD ORDERAB LES Final Result [facility] [address] Department [place] [address] * Comprehensive metabolic panel (08/25/2024 9:27 AM CDT) Sodium 139 135 - 145 mmol/L Comment:Testing performed by : [facility] [place] [address] Potassium, pl 4.6 3.3 - 4.9 mmol/L CERNER CH Comment:Testing performed by : [facility] [place] [address] Chloride 102 97 - 110 mmol/L CERNER CH Comment:Testing performed by : [facility] [place] [address] CO2 26 22 - 32 mmol/L CERNER CH Comment:Testing performed by : [facility] [place] [address] Anion gap 11 2 - 15 mmol/L CERNER CH Comment:Testing performed by : [facility] [place] [address] BUN 17 6 - 25 mg/dL CERNER CH Comment:Testing performed by : [facility] [place] [address] Creatinine 0.68 0.60 - 1.10 mg/dL CERNER CH Comment:Testing performed by : [facility] [place] [address] Glucose 158 70 - 199 mg/dL CERNER CH Comment: Interpretive Data Fasting glucose >/= 126 mg/dl is diagnostic for diabetes. Fasting is defined as no caloric intake for at least 8 hours. Fasting glucose between 100 mg/dl to 125 mg/dl is diagnostic of prediabetes. In a patient with classic symptoms of hyperglycemia or hyperglycemic crisis, a random glucose >/= 200 mg/dl is diagnostic for diabetes. In the absence of unequivocal hyperglycemia, results should be confirmed by repeat testing. The classification and Diagnosis of Diabetes Diabetes Care 2021; 46: S19-S40. Current interpretive data was last revised 2022. Testing performed by: [facility] [place] [address] Calcium 9.1 8.5 - 10.3 mg/dL CERNER CH Comment:Testing performed by : [facility] [place] [address] Bilirubin, total 0.8 0.1 - 1.2 mg/dL CERNER CH Comment:Testing performed by : [facility] [place] [address] Protein, pl 6.7 6.5 - 8.5 g/dL CERNER CH Comment:Testing performed by : [facility] [place] [address] Albumin 4.1 3.5 - 5.0 g/dL CERNER CH Comment:Testing performed by : [facility] [place] [address] Alk phos 83 40 - 130 Units/L CERNER CH Comment:Testing performed by : [facility] [place] [address] ALT 24 7 - 45 Units/L CERNER CH Comment:Testing performed by : [facility] [place] [address] AST 26 10 - 45 Units/L CERNER CH Comment:Testing performed by : [facility] [place] [address] Blood 08/25/2024 9:27 AM CDT 08/25/2024 9:27 AM CDT us Peter Waters MD LAB BLOOD ORDERAB LES Final Result [facility] [address] Department [place] [address] * SCAN - RADIOLOGY/IMAGING (06/27/2024) Anatomical Region Laterality Modality Other us Provider Scanning Final Result * SCAN - RADIOLOGY/IMAGING (06/27/2024) Anatomical Region Laterality Modality Other us Provider Scanning Final Result * Diagnostic Mammogram Bilateral W Vik (05/26/2024 1:46 PM APPAREL FASHION DESIGNER) Anatomical Region Laterality Modality Breast Bilateral Mammography 05/26/2024 1:49 PM APPAREL FASHION DESIGNER Impressions 05/26/2024 1:49 PM APPAREL FASHION DESIGNER No evidence of malignancy in either breast. OVERALL FINAL ASSESSMENT: BI-RADS Category 2: Benign. RECOMMENDATION: Annual diagnostic mammography is recommended. Electronically signed by: Kaila Estrada M.D. Narrative 05/26/2024 1:49 PM APPAREL FASHION DESIGNER EXAMINATION: BILATERAL DIGITAL DIAGNOSTIC MAMMOGRAM INCLUDING CAD AND BILATERAL DIGITAL BREAST TOMOSYNTHESIS HISTORY: 69-year-old woman with history of right breast cancer treated with breast conservation therapy in 2022, here for annual surveillance imaging. COMPARISON: Multiple prior studies, most recently 05/25/2023 and dating back to 03/12/2020. TECHNIQUE: Full field digital mammographic views of BOTH breasts were performed, including computer aided detection (CAD) and BILATERAL digital breast tomosynthesis (DBT). BREAST PARENCHYMAL COMPOSITION: There are scattered areas of fibroglandular density. MAMMOGRAM FINDINGS: There are post-treatment changes in the right breast. There is no suspicious mass, distortion, or calcification in either breast. There has been no significant interval change from the previous study. Procedure Note Kaila Estrada MD - 05/26/2024 EXAMINATION: BILATERAL DIGITAL DIAGNOSTIC MAMMOGRAM INCLUDING CAD AND BILATERAL DIGITAL BREAST TOMOSYNTHESIS HISTORY: 69-year-old woman with history of right breast cancer treated with breast conservation therapy in 2022, here for annual surveillance imaging. COMPARISON: Multiple prior studies, most recently 05/25/2023 and dating back to 03/12/2020. TECHNIQUE: Full field digital mammographic views of BOTH breasts were performed, including computer aided detection (CAD) and BILATERAL digital breast tomosynthesis (DBT). BREAST PARENCHYMAL COMPOSITION: There are scattered areas of fibroglandular density. MAMMOGRAM FINDINGS: There are post-treatment changes in the right breast. There is no suspicious mass, distortion, or calcification in either breast. There has been no significant interval change from the previous study. IMPRESSION: No evidence of malignancy in either breast. OVERALL FINAL ASSESSMENT: BI-RADS Category 2: Benign. RECOMMENDATION: Annual diagnostic mammography is recommended. Electronically signed by: Kaila Estrada M.D. Lizzy Lazcano ASSISTANT OFFICE MANAGER IMG MAMMO PROCEDURES Final Result * Hepatitis C antibody Blood (07/07/2023 9:36 AM APPAREL FASHION DESIGNER) Hep C Ab Nonreactive Nonreactive [facility] Comment: Interpretive Data Nonreactive: Antibodies to HCV not detected. Does NOT exclude the possibility of recent exposure to HCV. Equivocal: Equivocal for HCV antibodies. Supplemental molecular testing will be automatically performed to determine infection status in accordance with current CDC screening recommendations. Reactive: Positive for HCV antibodies. This may represent current or past HCV infection. Supplemental molecular testing will be automatically performed to determine current infection status in accordance with current CDC screening recommendations. Interpretive data was last revised on 2019. 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 ADVANCE DIRECTIVE 02/13/2023 7:58 AM Power of Academic Tutor-Medical ADVANCE DIRECTIVE 02/13/2023 7:58 AM Living Will Care Teams 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 Relationship Specialty Start Date End Date Elis Staton MD [address] [facility] [address] [place] [address] PCP - General Radiation Oncology 03/19/23 Cuca Plummer MD [address] [facility] [place] [address] Internal Medicine 11/21/22 Claudia Renee MD [address] [address] Referring Physician Gynecology 12/02/22 Lizzy Lazcano NP [address] [place] [address] Nurse Practitioner Nurse Practitioner 12/22/22 Kirti Degroot MD PhD [address] [address] Surgeon Surgical Oncology 03/02/23 Peter Waters MD [address] [facility], [address] [address] Consulting Physician Medical Oncology 03/02/23 Elis Staton MD [address] [facility] [facility], [address] [address] Radiation Oncologist Radiation Oncology 03/18/23 Ángel Nino MD [address] [place] [address] Resident Radiation Oncology 03/18/23 Gin Gauthier, PhD [address] [facility] [address] [place] [address] Nurse Practitioner Radiation Oncology 04/13/23
--- OUTSIDE RECORDS SUMMARY | 2024-09-01 15:52 | XMS_ITS ---
Author Organization [facility] porter Address [address] [facility] [address] [place] [address] Care Team Providers Care City Library Director Name Role Phone Kaylee Gonzáles Primary Care Provider Joslyn GoldbergJagruti Unavailable [phone] Allergies Allergen (clinical drug ingredient) Drug/Non Drug Allergy documented on EMR Reaction Allergy Type Onset Date Status Black Putney Flavor Unknown Drug Allergy Active lisinopril Lisinopril Unknown Drug Allergy Activ e Psyllium Unknown Drug Allergy Active varicella zoster virus glycoprotein E Shingrix Unknown Drug Allergy Active Results Component Value Reference Range Notes CMP(COMPREHENSIVE METABOLIC PANEL) Reviewed date:08/23/2024 09:56:19 AM Interpretation:Lab Result Generalized Performing Lab:[facility], [address] [place] [address], [address] Notes/Report: Sodium 141 133-146 mmol/L Potassium 4.2 3.5-5.1 mmol/L Chloride 105 98-107 mmol/L Carbon Dioxide 30 21-31 mmol/L Anion Gap 6 4-13 mmol/L Blood Urea Nitrogen 14 7-25 mg/dL Creatinine 0.69 0.60-1.30 mg/dL eGFRcr (CKD-EPI 2020) >90 >=60 mL/min/1.73 m2 Calcium 9.3 8.3-10.5 mg/dL Glucose 135 70-100 mg/dL Protein, Total 6.4 6.4-8.3 g/dL Albumin 4.2 3.5-5.0 g/dL ALT 20 9-43 units/L Alkaline Phosphatase 68 34-104 units/L AST 18 13-39 units/L Bilirubin, Total 0.8 0.2-1.2 mg/dL CBC W/DIFF Reviewed date:08/23/2024 09:56:19 AM Interpretation:Lab Result Generalized Performing Lab:[facility], [address] [facility], [place], [address] Notes/Report: WBC 4.2 3.5-10.5 10'3/uL RBC 4.28 (Based on docume nted legal sex) 3.80-5.20 10'6/uL HGB 12.5 (Based on docume nted legal sex) 11.6-15.4 g/dL HCT 39.3 (Based on docume nted legal sex) 34.0-45.0 % MCV 91.8 80.0-99.0 fL MCH 29.2 27.0-34.0 pg MCHC 31.8 32.0-35.5 g/dL RDW 13.6 11.0-15.0 % PLT 267 150-400 10'3/uL MPV 10.8 8.8-12.1 fL Neutrophils 49.6 34.0-73.0 % Lymphocytes 35.9 15.0-50.0 % Monocytes 9.3 1.0-15.0 % Eosinophils 3.6 0.0-8.0 % Basophils 1.4 0.0-2.0 % Immature Granulocytes 0.2 No defined reference range % Immature Granulocytes (IG) represents automated enumeration of Metamyelocytes, Myelocytes and Promyelocytes when IG is < 5%. Blasts are not included in IG and reported separately if present. Absolute Neutrophils 2.1 1.5-8.0 10'3/uL Absolute Lymphocytes 1.5 1.0-4.0 10'3/uL Absolute Monocytes 0.4 0.2-1.0 10'3/uL Absolute Eosinophils 0.2 0.0-0.6 10'3/uL Absolute Basophils 0.1 0.0-0.3 10'3/uL Absolute Immature Granulocytes 0.0 0.00-0.10 10'3/uL Reference ranges for nonbinary/intersex or unspecified gender patients have not been established. Please refer to the following table for ranges established for cisgender patients and evaluate in the clinical context of the individual patient: [email or web address].nm.org/ [email or web address] REASON FOR VISIT yd/3 month follow up/flc, RA, PCP: Vivienne Manzo MD Medications Medication SIG (Take, Route, Frequency, Duration) Notes Start Date End Date Status Losartan Potassium 50 MG 1 tablet Orally Once a day for 30 day(s) Active Simvastatin 20 MG 1 tablet in the even ing Orally Once a day for 30 day(s) Active Leflunomide 20 MG TAKE 1 TABLET BY ANISH TH ONCE A DAY FOR 30 DAYS for 90 Active Tylenol prn Active Exemestane 25 MG 1 tablet with a meal Orally Once a day for 30 day(s) Active Vitamin D3 25 MCG (1000 UT) 1 capsule Or ally Once a day for 30 day(s) Active Calcium 500 MG 1 tablet with meals Orally Twice a day for 30 day(s) Active ZyrTEC 10 MG 1 tablet Orally Once a day for 30 day(s) Active Aspirin 81 81 MG 1 tablet Orally Once a day for 30 day(s) Active traMADol HCl 50 MG 1 tablet as needed O rally Once a day Active Venlafaxine HCl 75 MG 1 tablet with food Orally Once a day for 30 day(s) Active metFORMIN HCl 500 MG 1 tablet with a adriano l Orally Once a day for 30 day(s) Active Social History Tobacco Use: Social History Observation Description Date Details (start date - stop date) Never Smoker NA - NA Household Question Answer Notes Marital status: Tobacco Control (Standard) Question Answer Notes Tobacco use: Nonsmoker Vital Signs Temperature 98.3 degrees Fahrenheit 08/23/19 25 Blood pressure systolic 132 mm Hg 08/23/19 25 Blood pressure diastolic 80 mm Hg 025 Heart Rate 89 /min 08/22/2024 Height 62 in 08/22/2024 Weight 162.2 lbs 08/22/2024 BMI 29.66 kg/m2 08/22/2024 Oximetry 95 % 08/22/2024 Height-cm 157.48 cm 08/22/2024 Weight-kg 73.57 kg 08/22/2024 Encounters Encounter Location Date Provider Diagnosis [facility] [address] [facility] [address] [place] [address] 08/22/2024 Jagruti Goldberg Other rheumatoid arthritis with rheumatoid factor of multiple sites M05.89 ; Osteoarthritis, unspecified osteoarthritis type, unspecified site M19.90 ; High risk medication use Z79.899 and History of retinopathy Z86.69 Assessments Encounter Date Diagnosis (ICD Code) Assessment Notes Treatment Notes Treatment Clinical Notes Section Notes 08/22/2024 Other rheumatoid arthritis with rheumatoid factor of multiple sites (ICD-10 - M05.89) mildly symptomatic, continue arava, labs today, return in 3 months avoid plaquenil due to hx of retinopathy 08/22/2024 Osteoarthritis, unspecified osteoarthritis type, unspecified site (ICD-10 - M19.90) mildly symptomatic, continue arava, labs today, return in 3 months avoid plaquenil due to hx of retinopathy 08/22/2024 High risk medication use (ICD-10 - Z79.899) mildly symptomatic, continue arava, labs today, return in 3 months avoid plaquenil due to hx of retinopathy 08/22/2024 History of retinopathy (ICD-10 - Z86.69) mildly symptomatic, continue arava, labs today, return in 3 months avoid plaquenil due to hx of retinopathy Plan Of Treatment Next Appt Details Follow Up: 3 Months, Reason: Provider Name:Jagruti Goldberg, 11/21 10:45:00 AM, [address], [address], [address], Progress Notes * Kandis MONTEIROhDOB: 3 (69 yo F)Acc No.[id number]:08/22/2024 Progress Notes Patient: Emma BARBER Provider: Praveen GOLDBERG MD :1955 A ge:69 Y S ex:Female Date:08/22/2024 Address:[address] [place] [address] [facility] Subjective: * Chief Complaints: * Y d/3 month follow up/flcRAPCP: Vivienne Manzo MD * HPI: j oint pain: on arava 20mg/day, helping, hands better, feet ache in the morning and at night, am stiffness: a fe wminutes 07/07/2023, SSA/SSB (-), ESR and CRP normal, CMP normal except for total bilirubin 1.4, CBC normal, HBV/HCV (-), Xrays of hands: osteoarthritis, Xrays of left shoulder: osteoarthritis. Xrays of feet: osteoarthritis an calcaneal spurs 06/18/2023, RF 68, CCP (-), TSH normal She has a history of breast cancer, off anastrozole, on exemestane sister: RA. * ROS: G eneral / Constitutional: Patient denies f guido, chills. P atient complains of?fatigue. M usculoskeletal: Patient complains of s ee HPI. S kin: Patient denies r kendrick. * Medical History: * Surgical History: C section, vitrectomy, cataract, partial mastectomy * Hospitalization/Major Diagno stic Procedure: * Family History: pulmonary emboli, breast cancer, epilepsy, hypertension, diabetes, dementia. * Social History: T obacco Use: T obacco Control (Standard) T obacco use: N onsmoker. D rug/Alcohol: D o you drink alcohol?: 0-1 drinks a week. H ousehold: H ousehold M arital status: m arried. M iscellaneous: E xercise: Walking and stationary bike. * Medications: T akingmetFORMIN HCl 500 MG Tablet 1 tablet with a meal Orally Once a day Venlafaxine HCl 75 MG Tablet 1 tablet with food Orally Once a day traMADol HCl 50 MG Tablet 1 tablet as needed Orally Once a day Aspirin 81 81 MG Tablet Delayed Release 1 tablet Orally Once a day ZyrTEC 10 MG Tablet Chewable 1 tablet Orally Once a day Calcium 500 MG Tablet 1 tablet with meals Orally Twice a day Vitamin D3 25 MCG (1000 UT) Capsule 1 capsule Orally Once a day Simvastatin 20 MG Tablet 1 tablet in the evening Orally Once a day Losartan Potassium 50 MG Tablet 1 tablet Orally Once a day Exemestane 25 MG Tablet 1 tablet with a meal Orally Once a day Tylenol prn Leflunomide 20 MG Tablet TAKE 1 TABLET BY MOUTH ONCE A DAY FOR 30 DAYS Medication List reviewed and reconciled with the patientTaking metFORMIN HCl 500 MG Tablet 1 tablet with a meal Orally Once a day Taking Venlafaxine HCl 75 MG Tablet 1 tablet with food Orally Once a day Taking traMADol HCl 50 MG Tablet 1 tablet as needed Orally Once a day Taking Aspirin 81 81 MG Tablet Delayed Release 1 tablet Orally Once a day Taking ZyrTEC 10 MG Tablet Chewable 1 tablet Orally Once a day Taking Calcium 500 MG Tablet 1 tablet with meals Orally Twice a day Taking Vitamin D3 25 MCG (1000 UT) Capsule 1 capsule Orally Once a day Taking Simvastatin 20 MG Tablet 1 tablet in the evening Orally Once a day Taking Losartan Potassium 50 MG Tablet 1 tablet Orally Once a day Taking Exemestane 25 MG Tablet 1 tablet with a meal Orally Once a day Taking Tylenol prn Taking Leflunomide 20 MG Tablet TAKE 1 TABLET BY MOUTH ONCE A DAY FOR 30 DAYS Medication List reviewed and reconciled with the patient * Allergies: S hingrixLisinoprilPsylliumBlack Putneypresley Marmolejono[Allergies Verified] Objective: * Vitals: B P:132/80mm Hg, HR:89/min, Temp:98.3F, Oxygen sat %:95%, Wt:162.2lbs, Wt- k.57kg, Ht:62in, Ht-cm:157.48cm, BMI:29.66Index, Body Surface Area:1.79. * Examination: G eneral Examination: General appearance: a lert, well-nourished and in no acute distress. Head: n ormocephalic, atraumatic. Eyes: n ormal. Skin: n o rash. Lungs: r espiratory effort normal. N eurology: Speech: n ormal. P sychiatry: Affect / mood: a ppropriate. R heumatology: b il MTPs tender. Assessment: * Assessment: 1. O ther rheumatoid arthritis with rheumatoid factor of multiple sites - M05.89 (Primary) 2 . O steoarthritis, unspecified osteoarthritis type, unspecified site - M19.90 3 . H igh risk medication use - Z79.899 4 . H istory of retinopathy - Z86.69 mildly symptomatic, continue arava, labs today, return in 3 months avoid plaquenil due to hx of retinopathy Plan: * Treatment: * Procedure Codes: * Follow Up: 3 Months * Billing Information: * Visit Code: 75257 Office Visit, Est Pt., Level 4. * Procedure Codes: Images * PatientLetter 08/23/2024 09: 56:20 * Sign off status: Completed true * Provider: Praveen GOLDBERG MD Date: 0 08/22/2024 Generated for Yari markham/Chasity/Madhu on: 0 09/01/2024 03:52 PM CDT History and Physical Notes * HPI (History of Present Illness) Category Sub-Category Detail Notes Category Not es joint pain on arava 20mg/day, helping, hands better, feet ache in the morning and at night, am stiffness: a fe wminutes 07/07/2023, SSA/SSB (-), ESR and CRP normal, CMP normal except for total bilirubin 1.4, CBC normal, HBV/HCV (-), Xrays of hands: osteoarthritis, Xrays of left shoulder: osteoarthritis. Xrays of feet: osteoarthritis an calcaneal spurs 06/18/2023, RF 68, CCP (-), TSH normal She has a history of breast cancer, off anastrozole, on exemestane sister: RA Examination Category Sub-Category Detail Notes Category Not es Rheumatology miguel MTPs tender Neurology Speech: normal Psychiatry Affect / mood: appropriate General Examination General appearance: alert, w ell-nourished and in no acute distress Head: normocephalic, atrau matic Eyes: normal Lungs: respiratory effort n ormal Skin: no rash
--- OUTSIDE RECORDS SUMMARY | 2024-09-01 15:52 | XMS_ITS | Encounter Summary ---
Author Organization [facility] Address [address] [place] [address] Phone Care Team Providers Care Director Biology Name Role Phone Cuca Plummer MD Unavailable [phone] Claudia Renee MD Unavailable [phone] Lizzy Lazcano NP Unavailable [phone] Kirti Degroot MD PhD Unavaila ble Peter Waters MD Unavailable Elis Staton MD Unavailable Ángel Nino MD Unavailable [phone] Elis Staton MD Primary Care Provider [phone] Gin Gauthier PhD Unavailable [phone] Encounter Details Date Type Department Care Team (Latest Contact Info) Description 06/27/2024 Orders Only [facility] Scanning, Provider Social History Tobacco Use Types Packs/Day Years Used Date Smoking Tobacco: Never Smokeless Tobacco: Never Social Connection and Isolat ion Panel [NHANES] Answer Date Recorded In a typical week, how many times do you talk on the phone with family, friends, or neighbors? More than three times a week 02/24/2024 How often do you get togethe r with friends or relatives? More than three times a week 02/24/2024 How often do you attend chur or baptist services? 1 to 4 times per year 02/24/2024 Do you belong to any clubs o r organizations such as adventist groups, unions, fraternal or athletic groups, or school groups? Yes 02/24/2024 How often do you attend meet ings of the clubs or organizations you belong to? 1 to 4 times per year 02/24/2024 Are you , , di vorced, , never , or living with a partner? 02/24/2024 AUDIT-C Answer Date Recorded Q1: How often [...] care, and heating? Not hard at all 02/24/2024 PHQ-2 Answer Date Recorded Patient Health Questionnaire-2 Score 0 02/24/2024 [facility] - Occupational Stress Questionnaire Answer Date Recorded Do you feel stress - tense, restless, nervous, or anxious, or unable to sleep at night because your mind is troubled all the time - these days? Not at all 02/24/2024 Exercise Vital Sign Answer Date Recorde d On average, how many days pe r week do you engage in moderate to strenuous exercise (like a brisk walk)? 5 days 02/24/2024 On average, how many minutes do you engage in exercise at this level? 60 min 02/24/2024 Hunger Vital Sign Answer Date Recorded Within the past 12 months, y ou worried that your food would run out before you got the money to buy more. Never true 02/24/20 24 Within the past 12 months, t he food you bought just didn't last and you didn't have money to get more. Never true 02/24/2024 PRAPARE - Transportation Answer Date Re corded In the past 12 months, has l ack of transportation kept you from medical appointments or from getting medications? No 02/06 In the past 12 months, has l ack of transportation kept you from meetings, work, or from getting things needed for daily living? No 02/24/2024 Housing Stability Vital Sign Answer Shay e [...] place to sleep or slept in a custodial (including now)? No 08/26/2023 Personal Safety Answer Date Recorded Have you ever been in or are you currently in a harmful physical or emotional relationship or is someone making you feel afraid or unsafe? 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 Gender Identity Not on file Sexual Orientation Not on file documented as of this encounter Plan of Treatment Not on file documented as of this encounter Procedures Procedure Name Priority Date/Time Associated Diagnosis Comments SCAN - RADIOLOGY/IMAGING 06/27/2024 documented in this encounter Results * SCAN - RADIOLOGY/IMAGING (06/27/2024) Anatomical Region Laterality Modality Other us Provider Scanning Final Result documented in this encounter Visit Diagnoses Not on filedocumented in this encounter Care Teams Director Biology Relationship Specialty Start Date End Date Elis Staton MD [address] [facility] [address] [place] [address] PCP - General Radiation Oncology 03/19/23 Cuca Plummer MD COUNTRY [facility] [place] [address] Internal Medicine 11/21/22 Claudia Renee MD [address] [address] Referring Physician Gynecology 12/02/22 Lizzy Lazcano NP [address] [address] Nurse Practitioner Nurse Practitioner 12/22/22 Kirti Degroot MD PhD [address] [place] [address] Surgeon Surgical Oncology 03/02/23 Peter Waters MD [address] [facility], [address] [address] Consulting Physician Medical Oncology 03/02/23 Elis Staton MD [address] [facility], [address] [address] Radiation Oncologist Radiation Oncology 03/18/23 Ángel Nino MD [address] [place], [place] [id number] Resident Radiation Oncology 03/18/23 Gin Gauthier, PhD [address] [facility] [address] [place] [address] Nurse Practitioner Radiation Oncology 04/13/23 documented as of this encounter
--- OUTSIDE RECORDS SUMMARY | 2024-09-01 15:53 | XMS_ITS | Encounter Summary ---
Author Organization [facility] Healthcare Address [address] [place] [address] Care Team Providers Care Computer Language Coder Name Role Phone Unavailable Primary Care Provider Unavailabl e Reason for Visit * Diagnostic Imaging (Routine) - Closed Specialty Diagnoses / Procedures Referred By Kal beltre Referred To Contact Procedures Breast Imaging Screening Outside Reference Lizzy Lazcano NP Phone: tel: fax: Referral ID Status Reason Start Date Expiration Date Visits Re quested Visits Authorized [id number] Closed 11/28/2022 12/28/2023 1 1 Encounter Details Date Type Department Care Team (Late st Contact Info) Description 03/12/2020 Hospital Encounter [facility] [address] [place] [phone] Social History Tobacco Use Types Packs/Day Years [...] often do you attend chur ch or temple services? 1 to 4 times per year 08/24/2024 Do you belong to any clubs o r organizations such as baptist groups, unions, fraternal or athletic groups, or [...] Questionnaire-2 Score 0 08/24/2024 [facility] - Occupational Stress Questionnaire Answer Date Recorded [...] place to sleep or slept in a long-term (including now)? No 08/26/2023 Personal Safety Answer Date Recorded Have you ever been in or are you currently in a harmful physical or emotional relationship or is someone making you feel afraid or unsafe? 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 2-4 times a month 03/19/2023 10:00 AM Neetu Garcia RN Q2: How many drinks containing alcohol do you have on a typical day when you are drinking? 1 or 2 03/19/2023 10:00 AM Neetu Garcia RN Q3: How often do you have six or more drinks on one occasion? Never 03/19/2023 10:00 AM Neetu Garcia RN * Over the past 2 weeks, how often have you been bothered by any of the following problems? Question Answer Date of Assessment Author Patient Health Questionnaire-2 Score 0 08/24/2024 5:16 PM CDT Interface, Ambu latory Doc Flowsheet In * Little interest or pleasure in doing things Answer Date of Assessment Author Not at all 08/24/2024 5:16 PM CDT Interface , Ambulatory Doc Flowsheet In * Feeling down, depressed, or hopeless Answer Date of Assessment Author Not at all 08/24/2024 5:16 PM CDT Interface , Ambulatory Doc Flowsheet In documented as of this encounter Plan of Treatment Not on file documented as of this encounter Procedures Procedure Name Priority Date/Time Associated Diagnosis Comments BREAST IMAGING MG SCREENING OUTSIDE REFERENCE Routine 03/12/2020 12:00 AM CDT documented in this encounter Results * Breast Imaging Screening Outside Reference (03/12/2020 12:00 AM CDT) Impressions [facility] - 11/28/2022 12:33 PM CDT These images are for Reference purposes only and have not been reviewed by [facility] Radiology. There will be no report generated by a [facility] Radiologist. Narrative [facility] - 11/28/2022 12:33 PM CDT EXAMINATION: Images For Reference Purposes Only us Lizzy Lazcano NP IMG MAMMO PROCEDURES Final Result [facility] documented in this encounter Visit Diagnoses Not on filedocumented in this encounter
--- OUTSIDE RECORDS SUMMARY | 2024-09-01 15:53 | XMS_ITS ---
Author Organization [facility] Address [address] [place] [address] Care Team Providers Care Van Driver Helper Name Role Phone Cuca Plummer MD Unavailable [phone] Claudia Renee MD Unavailable [phone] Lizzy Lazcano NP Unavailable [phone] Kirti Degroot MD PhD Unavaila ble Peter Waters MD Unavailable Elis Staton MD Unavailable Ángel Nino MD Unavailable [phone] Elis Staton MD Primary Care Provider [phone] Gin Gauthier PhD Unavailable [phone] Active Problems Problem Noted Date Diagnosed Date History of partial mastectomy of right breast Radiotherapy follow-up examination 04/28/2023 Malignant neoplasm of upper- outer quadrant of right breast in female, estrogen receptor positive 01/26/2023 Cancer Staging:Pathologic stage from 02/13/2023:Stage IA(pT1c, pN0(sn), cM0, G2, ER+, WI+, HER2-) - Signed by Ángel Nino MD on 03/18/2023 Mass of upper outer quadrant of right breast Abnormal mammogram 12/03/2022 Current Treatment and Therapy Plans No current plan information found. Past Treatment and Therapy Plans No past plan information found. Radiation Treatments * Course [id number]_202204/09/2023 - 04/09/2023 Treatment Period Energy Fraction Dose Fractions Total Dose Plans Planned RT APBI 04/09/2023 - 04/09/2023 2,000 Reference Points Delivered PTV_SURG_BED 04/09/2023 - 04/09/2023 2,000
--- OUTSIDE RECORDS SUMMARY | 2024-09-01 15:53 | XMS_ITS ---
Author Organization [facility] Address [address] [place] [address] Care Team Providers Care Tobacco Drier Operator Name Role Phone Kaylee Gonzáles Primary Care Provider Joslyn GoldbergJagruti Unavailable [phone] Allergies Allergen (clinical drug ingredient) Drug/Non Drug Allergy documented on EMR Reaction Allergy Type Onset Date Status [place] Flavor Unknown Drug Allergy Active lisinopril Lisinopril Unknown Drug Allergy Activ e Psyllium Unknown Drug Allergy Active varicella zoster virus glycoprotein E Shingrix Unknown Drug Allergy Active Results Component Value Reference Range Notes CBC W/DIFF Reviewed date:05/24/2024 04:50:46 PM Interpretation:Lab Result Generalized Performing Lab:[facility], [address] [place] [address], [address] Notes/Report: WBC 3.2 3.5-10.5 10'3/uL RBC 4.29 (Based on docume nted legal sex) 3.80-5.20 10'6/uL HGB 12.5 (Based on docume nted legal sex) 11.6-15.4 g/dL HCT 39.9 (Based on docume nted legal sex) 34.0-45.0 % MCV 93.0 80.0-99.0 fL MCH 29.1 27.0-34.0 pg MCHC 31.3 32.0-35.5 g/dL RDW 13.7 11.0-15.0 % PLT 271 150-400 10'3/uL MPV 11.1 8.8-12.1 fL NRBC's 0.0 0.0 % Absolute NRBCs 0.0 No reference ran ge established 10'3/uL Neutrophils 41.3 34.0-73.0 % Lymphocytes 42.6 15.0-50.0 % Monocytes 9.8 1.0-15.0 % Eosinophils 4.1 0.0-8.0 % Basophils 1.9 0.0-2.0 % Immature Granulocytes 0.3 No defined reference range % Absolute Neutrophils 1.3 1.5-8.0 10'3/uL Absolute Lymphocytes 1.4 1.0-4.0 10'3/uL Absolute Monocytes 0.3 0.2-1.0 10'3/uL Absolute Eosinophils 0.1 0.0-0.6 10'3/uL Absolute Basophils 0.1 0.0-0.3 10'3/uL Absolute Immature Granulocytes 0.0 0.00-0.10 10'3/uL 05/24/2024 8:11 AM: P indicates partial results on a panel have been released. Additional results will follow. 05/24/2024 8:11 AM: This result has been final verified. No additional or changed results are expected. CMP(COMPREHENSIVE METABOLIC PANEL) Reviewed date:05/24/2024 04:50:45 PM Interpretation:Lab Result Generalized Performing Lab:[facility], [address], [place], [address] Notes/Report: Sodium 138 133-146 mmol/L Potassium 4.2 3.5-5.1 mmol/L Chloride 105 98-107 mmol/L Carbon Dioxide 25 21-31 mmol/L Anion Gap 8 4-13 mmol/L Blood Urea Nitrogen 13 7-25 mg/dL Creatinine 0.67 0.60-1.30 mg/dL eGFRcr (CKD-EPI 2020) >90 >=60 mL/min/1.73 m2 Calcium 9.3 8.3-10.5 mg/dL Glucose 175 70-100 mg/dL Protein, Total 6.4 6.4-8.3 g/dL Albumin 4.1 3.5-5.0 g/dL ALT 25 9-43 units/L Alkaline Phosphatase 68 34-104 units/L AST 23 13-39 units/L Bilirubin, Total 1.1 0.2-1.2 mg/dL REASON FOR VISIT yd/3 month follow up/flc, RA, referred by Cuca Plummer [place] [address] Medications Medication SIG (Take, Route, Frequency, Duration) Notes Start Date End Date Status traMADol HCl 50 MG 1 tablet as needed O rally Once a day Active Aspirin 81 81 MG 1 tablet Orally Once a day for 30 day(s) Active ZyrTEC 10 MG 1 tablet Orally Once a day for 30 day(s) Active Calcium 500 MG 1 tablet with meals Orally Twice a day for 30 day(s) Active Vitamin D3 25 MCG (1000 UT) 1 capsule Or ally Once a day for 30 day(s) Active Exemestane 25 MG 1 tablet with a meal Orally Once a day for 30 day(s) Active Leflunomide 20 MG TAKE 1 TABLET BY ANISH TH ONCE A DAY FOR 30 DAYS for 90 Active Tylenol prn Active Venlafaxine HCl 75 MG 1 tablet with food Orally Once a day for 30 day(s) Active Simvastatin 20 MG 1 tablet in the even ing Orally Once a day for 30 day(s) Active Losartan Potassium 50 MG 1 tablet Orally Once a day for 30 day(s) Active Social History Tobacco Use: Social History Observation Description Date Details (start date - stop date) Never Smoker NA - NA Household Question Answer Notes Marital status: Tobacco Control (Standard) Question Answer Notes Tobacco use: Nonsmoker Vital Signs Temperature 98.2 degrees Fahrenheit 05/23/20 24 Blood pressure systolic 148 mm Hg 05/23/20 24 Blood pressure diastolic 88 mm Hg 024 Heart Rate 88 /min 05/23/2024 Height 62 in 05/23/2024 Weight 163.0 lbs 05/23/2024 BMI 29.81 kg/m2 05/23/2024 Oximetry 94 % 05/23/2024 Height-cm 157.48 cm 05/23/2024 Weight-kg 73.92 kg 05/23/2024 Encounters Encounter Location Date Provider Diagnosis [facility] [address] [place] [address] 05/23/2024 Jagruti Goldberg Other rheumatoid arthritis with rheumatoid factor of multiple sites M05.89 ; Osteoarthritis, unspecified osteoarthritis type, unspecified site M19.90 ; High risk medication use Z79.899 and History of retinopathy Z86.69 Assessments Encounter Date Diagnosis (ICD Code) Assessment Notes Treatment Notes Treatment Clinical Notes Section Notes 05/23/2024 Other rheumatoid arthritis with rheumatoid factor of multiple sites (ICD-10 - M05.89) mildly symptomatic, continue arava, labs today, return in 3 months avoid plaquenil due to hx of retinopathy 05/23/2024 Osteoarthritis, unspecified osteoarthritis type, unspecified site (ICD-10 - M19.90) mildly symptomatic, continue arava, labs today, return in 3 months avoid plaquenil due to hx of retinopathy 05/23/2024 High risk medication use (ICD-10 - Z79.899) mildly symptomatic, continue arava, labs today, return in 3 months avoid plaquenil due to hx of retinopathy 05/23/2024 History of retinopathy (ICD-10 - Z86.69) mildly symptomatic, continue arava, labs today, return in 3 months avoid plaquenil due to hx of retinopathy Plan Of Treatment Next Appt Details Follow Up: 3 Months, Reason: Provider Name:Jagruti Goldberg, 11/21 10:45:00 AM, [address], [address], [address], Progress Notes * Kandis MONTEIROhDOB: 3 (69 yo F)Acc No.[id number]:05/23/2024 Progress Notes Patient: Emma BARBER Provider: Praveen GOLDBERG MD :1955 A ge:69 Y S ex:Female Date:05/23/2024 [facility] Pcp:Cuca Plummer Subjective: * Chief Complaints: * Y d/3 month follow up/flcRAreferred by [facility] [address] * HPI: j oint pain: on arava 20mg/day, helping, R knee and SI joints bother her sometimes, heating pad has helped, am stiffness: varies 07/07/2023, SSA/SSB (-), ESR and CRP normal, [...] Walking and stationary bike. * Medications: T akingVenlafaxine HCl 75 MG Tablet 1 tablet with [...] with a meal Orally Once a day Leflunomide 20 MG Tablet TAKE 1 TABLET BY MOUTH ONCE A DAY FOR 30 DAYS Tylenol prn Taking Venlafaxine HCl 75 MG Tablet 1 [...] a meal Orally Once a day Taking Leflunomide 20 MG Tablet TAKE 1 TABLET BY MOUTH ONCE A DAY FOR 30 DAYS Taking Tylenol prn DiscontinuedTylenol Arthritis Pain Medication List reviewed and reconciled with the patientDiscontinued Tylenol Arthritis Pain Medication List reviewed and reconciled with the patient * Allergies: S hingrixLisinoprilPsylliumBlack Rogers Jaleelno[Allergies Verified] Objective: * Vitals: B P:148/88mm Hg, HR:88/min, Temp:98.2F, Oxygen sat %:94%, Wt:163.0lbs, Wt- k.92kg, Ht:62in, Ht-cm:157.48cm, BMI:29.81Index, Body Surface Area:1.8. * Examination: G eneral Examination: General appearance: a lert, well-nourished and in no acute distress. Head: n ormocephalic, atraumatic. Eyes: n ormal. Skin: n o rash. Lungs: r espiratory effort normal. N eurology: Speech: n ormal. P sychiatry: Affect / mood: a ppropriate. R heumatology: R 2nd and 3rd MCP tender, R wrist tender, no obvious swelling, lumbar area tender. Assessment: * Assessment: 1. O ther [...] Months * Billing Information: * Visit Code: 28789 Office Visit, Est Pt., Level 4. * Procedure Codes: Images * PatientLetter 05/24/2024 16: 50:46 * RVISOR SCREEN PRINTING Sign off status: Completed true * Provider: Praveen GOLDBERG MD Date: 1 07/24/2023 Generated for Yari markham/Chasity/eTransmitting on: 0 09/01/2024 03:52 PM CDT History and Physical Notes * HPI (History of Present Illness) Category Sub-Category Detail Notes Category Not es joint pain on arava 20mg/day, helping, R knee and SI joints bother her sometimes, heating pad has helped, am stiffness: varies 07/07/2023, SSA/SSB (-), ESR and CRP normal, CMP normal except for total bilirubin 1.4, CBC normal, HBV/HCV (-), Xrays of hands: osteoarthritis, Xrays of left shoulder: osteoarthritis. Xrays of feet: osteoarthritis an calcaneal spurs 06/18/2023, RF 68, CCP (-), TSH normal She has a history of breast cancer, off anastrozole, on exemestane sister: RA Examination Category Sub-Category Detail Notes Category Not es Rheumatology R 2nd and 3rd MCP tender, R wrist tender, no obvious swelling, lumbar area tender Neurology Speech: normal Psychiatry Affect / mood: appropriate General Examination General appearance: alert, w ell-nourished and in no acute distress Head: normocephalic, atrau matic Eyes: normal Lungs: respiratory effort n ormal Skin: no rash
--- OUTSIDE RECORDS SUMMARY | 2024-09-01 15:53 | XMS_ITS ---
Author Organization [facility] Address [address] [place] [address] Care Team Providers Care Paper Feeder Name Role Phone Kaylee Gonzáles Primary Care Provider Joslyn GodlbergJagruti Unavailable [phone] Allergies Allergen (clinical drug ingredient) Drug/Non Drug Allergy documented on EMR Reaction Allergy Type Onset Date Status Black [place] Flavor Unknown Drug Allergy Active lisinopril Lisinopril Unknown Drug Allergy Activ e Psyllium Unknown Drug Allergy Active varicella zoster virus glycoprotein E Shingrix Unknown Drug Allergy Active REASON FOR VISIT yd/3 month follow up/flc, RA, referred by Cuca Plummer MD [place] [facility] [address] Medications Medication SIG (Take, Route, Frequency, Duration) Notes Start Date End Date Status Leflunomide 20 MG 1 tablet Orally Once a day for 30 days 09/22/2023 03/07/2024 Active Exemestane 25 MG 1 tablet with [...] D3 25 MCG (1000 UT) 1 capsule Orally Once a day for 30 day(s) Active Tylenol Arthritis Pain Active ZyrTEC 10 MG 1 tablet Orally Once a day for 30 day(s) Active Venlafaxine HCl 75 MG 1 tablet with food Orally Once a day for 30 day(s) Active traMADol HCl 50 MG 1 tablet as needed Orally Once a day Active Social History Tobacco Use: Social History Observation Description Date Details (start date - stop date) Never Smoker NA - NA Household Question Answer Notes Marital status: Tobacco Control (Standard) Question Answer Notes Tobacco use: Nonsmoker Vital Signs Temperature 98.3 degrees Fahrenheit 02/22/20 24 Blood pressure systolic 130 mm Hg 02/22/20 24 Blood pressure diastolic 82 mm Hg 024 Heart Rate 102 /min 02/22/2024 Height 62 in 02/22/2024 Weight 161.0 lbs 02/22/2024 BMI 29.44 kg/m2 02/22/2024 Oximetry 95 % 02/22/2024 Encounters Encounter Location Date Provider Diagnosis [facility] [address] [place] [address] 02/22/2024 Jagruti Goldberg Other rheumatoid arthritis with rheumatoid factor of multiple sites M05.89 ; Osteoarthritis, unspecified osteoarthritis type, unspecified site M19.90 ; High risk medication use Z79.899 and History of retinopathy Z86.69 Assessments Encounter Date Diagnosis (ICD Code) Assessment Notes Treatment Notes Treatment Clinical Notes Section Notes 02/22/2024 Other rheumatoid arthritis with rheumatoid factor of multiple sites (ICD-10 - M05.89) mildly symptomatic, continue arava, labs today, return in 3 months avoid plaquenil due to hx of retinopathy 02/22/2024 Osteoarthritis, unspecified osteoarthritis type, unspecified site (ICD-10 - M19.90) mildly symptomatic, continue arava, labs today, return in 3 months avoid plaquenil due to hx of retinopathy 02/22/2024 High risk medication use (ICD-10 - Z79.899) mildly symptomatic, continue arava, labs today, return in 3 months avoid plaquenil due to hx of retinopathy 02/22/2024 History of retinopathy (ICD-10 - Z86.69) mildly symptomatic, continue arava, labs today, return in 3 months avoid plaquenil due to hx of retinopathy Plan Of Treatment Pending Test Test Name Order Date CMP(COMPREHENSIVE METABOLIC PANEL) 02/21 CBC W/DIFF 02/22/2024 Next Appt Details Follow Up: 3 Months, Reason: Provider Name:Jagruti José, 11/21 10:45:00 AM, [address], [place] [address], [place], [address], Progress Notes * Kandis MONTEIROhDOB: 3 (68 yo F)Acc No.[id number]:02/22/2024 Progress Notes Patient: Emma BARBER Provider: Praveen GOLDBERG MD :1955 A ge:68 Y S ex:Female Date:02/22/2024 Address:[address] [place] [address], [facility] Pcp:Cuca Plummer Subjective: * Chief Complaints: * Y d/3 month follow up/flcRAreferred by Cuca Plummer MD [facility] [address] * HPI: j oint pain: on arava 20mg/day, helping, R hand was swollen last week, better now, R foot bothers her too, am stiffness: a couple of hours 07/07/2023, SSA/SSB (-), ESR and CRP normal, CMP normal except for total bilirubin 1.4, CBC normal, HBV/HCV (-), Xrays of hands: osteoarthritis, Xrays of left shoulder: osteoarthritis. Xrays of feet: osteoarthritis an calcaneal spurs 06/18/2023, RF 68, CCP (-), TSH normal She has a history of breast cancer and takes anastrozole since 04/20/2023. sister: RA. * ROS: G eneral / [...] Release 1 tablet Orally Once a day Tylenol Arthritis Pain ZyrTEC 10 MG Tablet Chewable 1 tablet Orally Once a day Calcium 500 MG Tablet 1 tablet with meals Orally Twice a day Vitamin D3 25 MCG (1000 UT) Capsule 1 capsule Orally Once a day Simvastatin 20 MG Tablet 1 tablet in the evening Orally Once a day Losartan Potassium 50 MG Tablet 1 tablet Orally Once a day Leflunomide 20 MG Tablet 1 tablet Orally Once a day , stop date 03/07/2024Exemestane 25 MG Tablet 1 tablet with a meal Orally Once a day Taking Venlafaxine HCl 75 MG Tablet 1 tablet with food Orally Once a day Taking traMADol HCl 50 MG Tablet 1 tablet as needed Orally Once a day Taking Aspirin 81 81 MG Tablet Delayed Release 1 tablet Orally Once a day Taking Tylenol Arthritis Pain Taking ZyrTEC 10 MG Tablet Chewable 1 [...] 1 tablet Orally Once a day Taking Leflunomide 20 MG Tablet 1 tablet Orally Once a day , stop date 03/07/2024Taking Exemestane 25 MG Tablet 1 tablet with a meal Orally Once a day DiscontinuedAnastrozole 1 MG Tablet 1 tablet Orally Once a day Medication List reviewed and reconciled with the patientDiscontinued Anastrozole 1 MG Tablet 1 tablet Orally Once a day Medication List reviewed and reconciled with the patient * Allergies: S hingrixLisinoprilPsylliumAlexisack [place] Flavortate[Allergies Verified] Objective: * Vitals: B P:130/82mm Hg, HR:102/min, Temp:98.3F, Oxygen sat %:95%, Wt:161.0lbs, Ht:62in, BMI:29.44Index. * Examination: G eneral Examination: General appearance: a lert, well-nourished and in no acute distress. Head: n ormocephalic, atraumatic. Eyes: n ormal. Skin: n o rash. Lungs: r espiratory effort normal. N eurology: Speech: n ormal. P sychiatry: Affect / mood: a ppropriate. R heumatology: R 3rd MCP tender, no obvious swelling, R 1st MTP tender. Assessment: * Assessment: 1. O ther [...] Months * Billing Information: * Visit Code: 57787 Office Visit, Est Pt., Level 4. * Procedure Codes: * Sign off status: Completed true * Provider: Praveen GOLDBERG MD Date: 0 02/22/2024 Generated for Yari markham/Chasity/Madhu on: 0 09/01/2024 03:53 PM CDT History and Physical Notes * HPI (History of Present Illness) Category Sub-Category Detail Notes Category Not es joint pain on arava 20mg/day, helping, R hand was swollen last week, better now, R foot bothers her too, am stiffness: a couple of hours 07/07/2023, SSA/SSB (-), ESR and CRP normal, CMP normal except for total bilirubin 1.4, CBC normal, HBV/HCV (-), Xrays of hands: osteoarthritis, Xrays of left shoulder: osteoarthritis. Xrays of feet: osteoarthritis an calcaneal spurs 06/18/2023, RF 68, CCP (-), TSH normal She has a history of breast cancer and takes anastrozole since 04/20/2023. sister: RA Examination Category Sub-Category Detail Notes Category Not es Rheumatology R 3rd MCP tender, no obvious swelling, R 1st MTP tender Neurology Speech: normal Psychiatry Affect / mood: appropriate General Examination General appearance: alert, w ell-nourished and in no acute distress Head: normocephalic, atrau matic Eyes: normal Lungs: respiratory effort n ormal Skin: no rash
--- OUTSIDE RECORDS SUMMARY | 2024-09-01 15:53 | XMS_ITS | Clinical Summary ---
Author Organization [facility] Address [address] [place] [address] Care Team Providers Care Evs Tech Name Role Phone Cuca Plummer MD Primary Care Provider [phone] Source Comments [facility],non-owned [facility] and Associated Physician Practices is amultiple site organization consisting of ambulatory clinics and hospital sitesin [place], [place], [place] and [place]. This disclosure is being madepursuant to the Care Everywhere program and may not contain all information available regarding this patient. Last updated 18.[facility] Allergies Active Allergy Reactions Criticality Noted Date Comments Wheat Bran Eye Itching 09/03/2020 Medications * Be aware that medications may not be up to date on this document. Alwaysverify current medications with the patient. Medication Sig Dispensed Refills Start Date End Date Status EPINEPHrine (EPIPEN) 0.3 MG/0.3ML auto-injector pen INJECT 0.3ML INTRAMUSCULARLY ONCE FOR ANAPHYLAXIS AND REPEAT IN 5 MINUTES IF NECESSARY 04/09/2020 Active simvastatin (ZOCOR) 20 MG tablet TAKE 1 TABLET ORALLY DAILY IN THE EVENING 06/14/2020 Active Cetirizine HCl (ZYRTEC ALLERGY PO) Active Cholecalciferol (VITAMIN D3) 25 MCG (1000 UT) Active Ibuprofen 100 MG Active Acetaminophen (TYLENOL 8 HOUR PO) Active losartan (COZAAR) 50 MG tablet TAKE 1 TABLET BY MOUTH DAILY REPLACES LISINOPRIL 07/05/2020 Active Active Problems No known active problems Immunizations Name Administration Dates Next Due INFLUENZA VACCINE 03/22/2020 Family History Medical History Relation Name Comments Glaucoma Maternal Grandmother Macular Degeneration Other mat aunts Relation Name Status Comments Maternal Grandmother Other mat aunts Alive Social History Tobacco Use Types Packs/Day Years Used Date Smoking Tobacco: Never Smokeless Tobacco: Never Alcohol Use Standard Drinks/Week Comments Not Currently 0 (1 standard drink = 0.6 oz pur e alcohol) Sex and Gender Information Value Date Recorded Sex Assigned at Not on file Gender Identity Not on file Sexual Orientation Not on file Last Filed Vital Signs Vital Sign Reading Time Taken Comments Blood Pressure 119/56 09/04/2020 9:35 AM CDT Pulse 57 09/04/2020 9:35 AM CDT Temperature 36 C (96.8 F) 09/04/2020 9:35 AM CDT Respiratory Rate 14 09/04/2020 9:35 AM CDT Oxygen Saturation 98% 09/04/2020 9:35 AM CDT Inhaled Oxygen Concentration - - Weight 76.7 kg (169 lb) 09/04/2020 6:50 AM CDT Height - - Body Mass Index - - Plan of Treatment Health Maintenance Due Date Last Done Comments BONE DENSITY TESTING 1955 COLON MONITORING 1955 COLONOSCOPY - COLON CA SCREENING 1955 CT COLONOGRAPHY - COLON CA SCREENING 1955 FIT - COLON CA SCREENING 1955 FLEX SIG - COLON CA SCREENING 1955 MAMMOGRAM 1955 MEDICARE AWV 12 MONTHS 1955 HEPATITIS C SCREENING 04/26/1971 DTAP/TDAP/TD VACCINES (1 - Tdap) 1972 PNEUMOCOCCAL VACCINE 50+ (1 of 1 - PCV) 2003 ZOSTER VACCINE (1 of 2) 2003 COLOGUARD (AGES 45-75) - COL ON CA SCREENING 05/14/2023 05/14/2020 Colorectal Cancer Screening 05/14/2023 COVID-19 VACCINE (1 - 2023-2 5 season) 2024 INFLUENZA VACCINE (#1) 2024 03/22/2020 DEPRESSION SCREENING 06/08/2024 Respiratory Syncytial Virus (RSV) Vaccine Pt: or over 60 yrs (1 - 1-dose 75+ series) 2028 HEPATITIS B VACCINE Aged Out No longe r eligible based on patient's age to complete this topic HIB VACCINE Aged Out No longer eligi ble based on patient's age to complete this topic HPV VACCINE Aged Out No longer eligi ble based on patient's age to complete this topic MENINGOCOCCAL (Group B) VACC INE SHARED DECISION-MAKING Aged Out No longer eligibl e based on patient's age to complete this topic MENINGOCOCCAL GROUPS A/C/Y/W VACCINE Aged Out No longer eligible b ased on patient's age to complete this topic Care Teams Evs Tech Relationship Specialty Start Date End Date Cuca Plummer MD PCP - General 04/19/20
--- OUTSIDE RECORDS SUMMARY | 2024-09-01 15:53 | XMS_ITS | Encounter Summary ---
Author Organization [facility] Address [address] [place] [address] Phone Care Team Providers Care Camera Maker Name Role Phone Cuca Plummer MD Primary Care Provider [phone]- [phone] Cuca Plummer MD Unavailable [phone] Claudia Renee MD Unavailable [phone] Lizzy Lazcano NP Unavailable Kirti Degroot MD PhD Unavaila ble Peter Waters MD Unavailable Elis Staton MD Unavailable Ángel Nino MD Unavailable [phone] Elis Staton MD Primary Care Provider [phone] Gin Gauthier PhD Unavailable [phone] Encounter Details Date Type Department Care Team (Latest Contact Info) Description 06/27/2022 Orders Only [facility] Scanning, Provider Social History Tobacco Use Types Packs/Day Years Used Date Smoking Tobacco: Never Assessed Comments Unknown Sex and Gender Information Value Date Recorded Sex Assigned at Not on file Legal Sex Female 7:05 PM CARE AIDE Gender Identity Not on file Sexual Orientation Not on file documented as of this encounter Plan of Treatment Not on file documented as of this encounter Procedures Procedure Name Priority Date/Time Associated Diagnosis Comments SCAN - RADIOLOGY/IMAGING 06/27/2022 documented in this encounter Results * SCAN - RADIOLOGY/IMAGING (06/27/2022) Anatomical Region Laterality Modality Other us Provider Scanning Final Result documented in this encounter Visit Diagnoses Not on filedocumented in this encounter Care Teams Camera Maker Relationship Specialty Start Date End Date Cuca Plummer MD [address] [place] [address] PCP - General Internal Medicine 11/21/22 03/18/23 Elis Staton MD [address] [facility] [address] [place] [address] PCP - General Radiation Oncology 03/19/23 Cuca Plummer MD [address] [place] [address] Internal Medicine 11/21/22 Claudia Renee MD [address] [place] [address] Referring Physician Gynecology 12/02/22 Lizzy Lazcano NP [address] [place] [address] Nurse Practitioner Nurse Practitioner 12/22/22 Kirti Degroot MD PhD [address] [place] [address] Surgeon Surgical Oncology 03/02/23 Peter Waters MD [address], [address] [address] Consulting Physician Medical Oncology 03/02/23 Elis Staton MD [address], [facility] [address] [place] [address] Radiation Oncologist Radiation Oncology 03/18/23 Ángel Nino MD [address] [place] [address] Resident Radiation Oncology 03/18/23 Gin Gauthier, PhD [address] [facility] [address] [place] [address] Nurse Practitioner Radiation Oncology 04/13/23 documented as of this encounter
--- OUTSIDE RECORDS SUMMARY | 2024-09-01 15:53 | XMS_ITS | Referral Summary ---
Author Organization [facility] Address [address] [place] [address] Care Team Providers Care Clinical Operations Leader Name Role Phone Cuca Plummer MD Unavailable [phone] Claudia Renee MD Unavailable [phone] Lizzy Lazcano NP Unavailable Kirti Degroot MD PhD Unavaila ble Peter Waters MD Unavailable Elsi Staton MD Unavailable Ángel Nino MD Unavailable [phone] Elis Staton MD Primary Care Provider Gin Gauthier PhD Unavailable [phone] Encounters Date Type Department Care Team Description 08/26/2024 Telephone [facility] Bone Marrow Transplant [address] [place] [address] Sindi Dick CMA 08/25/2024 9:45 AM CDT Lab [facility] Lab [address] [place] [address] Malignant neoplasm of upper-outer quadrant of right breast in female, estrogen receptor positive (HCC) 08/25/2024 10:00 AM CDT Office Visit [facility] Oncology [address] [place] [address] Augie Sal NP Malignant neoplasm of upper-outer quadrant of right breast in female, estrogen receptor positive (HCC); ferry terminal agent current use of aromatase inhibitor 08/25/2024 9:30 AM CDT Lab [facility] Oncology [address] [place] [address] Malignant neoplasm of upper-outer quadrant of right breast in female, estrogen receptor positive (HCC) 06/27/2024 Orders Only [facility] Scanning, Provider 06/27/2024 Orders Only [facility] Scanning, Provider from Last 3 Months Allergies Active Allergy Reactions Criticality Noted Date Comments Black Bolton Hives Medium 12/02/2022 Black Walnuts Husks Wheat [...] daily Take after a meal. 30 tablet 11 08/26/19 25 026 Active metFORMIN (GLUCOPHAGE) 500 [...] total) by mouth daily 30 capsule 09/22/19 025 Discontinued exemestane (AROMASIN) 25 mg tabletIndicati ons:Malignant neoplasm of upper-outer quadrant of right breast in female, estrogen receptor positive (HCC) Take 1 tablet (25 mg total) by mouth daily Take after a meal. 30 tablet 11/26/19 24 025 Discontinued(Re order) venlafaxine XR (EFFEXOR-XR) 75 mg 24 hr capsule TAKE 1 CAPSULE BY MOUTH DAILY 90 capsule 08/17/19 025 Discontinued(Re order) Active Problems Problem Noted Date Diagnosed Date History of partial mastectomy of right breast Radiotherapy follow-up examination 04/28/2023 Malignant neoplasm of upper- outer quadrant of right breast in female, estrogen receptor positive 01/26/2023 Cancer Staging:Pathologic stage from 02/13/2023:Stage IA(pT1c, pN0(sn), cM0, G2, ER+, MT+, HER2-) - Signed by Ángel Nino MD on 03/18/2023 Mass of upper outer quadrant of right breast Abnormal mammogram 12/03/2022 Immunizations Immunization Administration Dates Next Due COVID-19 [...] 08/26/2020,07/25/2020 ZOSTER Recombinant 02/12/2020 Zoster, unspecified 02/11/2020,11/17/2019 Social History Tobacco Use Types Packs/Day Years [...] week 08/24/2024 How often do you attend [facility] or alevism services? 1 to 4 times per year 08/24/2024 Do you belong to any clubs o r organizations such as scientology groups, unions, fraternal or athletic groups, or [...] Recorded Patient Health Questionnaire-2 Score 0 08/24/2024 [facility] Occupat ional Health - Occupational Stress [...] place to sleep or slept in a longterm (including now)? No 08/26/2023 Personal Safety Answer Date Recorded Have you ever been in or are you currently in a harmful physical or emotional relationship or is someone making you feel afraid or unsafe? 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 Gender Identity Not on file Sexual Orientation [...] 08/25/2024 9:40 AM CDT Plan of Treatment Not on file Medical Devices Implanted Type Area Script Artist Device Identifier Shelf Expiration Date Model / Serial / Lot Bard Peripheral Vascular Ultraclip Bard 17ga 10cm 2 Trigger Permanent Ultrasound [id number] - [id number] - [id number] Implanted:Qty: 1 on 12/17/2022 at [facility] [employer] [id number] 05/05/2025 [id number] / [id number] / Description:RIGHT BREAST 110 0 9CMFN [employer] Marker Breast Ring Shape Radiopaque Nitinol Ultracor Twirl [id number] - [id number] - [id number] Implanted:Qty: 1 on 12/17/2022 at [facility] [employer] [id number] 08/05/2025 [id number] / [id number] / Description:RIGHT BREAST 900 5CMFN [employer] [place] 20ga 7.5cm 2 Part Stabilizer Repositionable Depth Hany [id number] - [id number] Implanted:Qty: 1 on 02/13/2023 at [facility] Right: Breast [employer] [id number] 02/13/2027 [id number] / / [id number] Procedures Procedure Name Priority Date/Time Associated Diagnosis [...] Read Routine (OP Routine) 05/26/2024 1:46 PM AGRICULTURAL EQUIPMENT SALES MANAGER Malignant neoplasm of upper-outer quadrant of right breast in female, estrogen receptor positive (HCC) History of partial mastectomy of right breast HEPATITIS C ANTIBODY Routine 07/07/2023 9:36 AM AGRICULTURAL EQUIPMENT SALES MANAGER from Last 3 Months or Most Recently [...] was last reviewed 2021. Testing performed by: [facility] [place] [address] Blood 08/25/2024 9:27 AM CDT 08/25/2024 9:27 AM CDT us Peter Waters MD LAB BLOOD ORDERAB LES Final Result [facility] [address] [place] [address] * Differential, auto (08/25/2024 9:27 AM CDT) Neutrophil abs 2.5 1.5 - 6.5 K/cumm Comment:Testing performed by : [facility] [place] [address] Imm gran abs 0.0 0.0 - 0.1 K/cumm CERNER Comment:Testing performed by : [facility] [place] [address] Lymphocyte abs 2.0 0.8 - 3.3 K/cumm CERNER Comment:Testing performed by : [facility] [place] [address] Monocyte abs 0.5 0.2 - 0.8 K/cumm CERNER Comment:Testing performed by : [facility] [place] [address] Eosinophil abs 0.2 0.0 - 0.5 K/cumm CERNER Comment:Testing performed by : [facility] [place] [address] Basophil abs 0.1 0.0 - 0.1 K/cumm CERNER Comment:Testing performed by : [facility] [place] [address] Neutrophil pct 47.8 % CERNER Comment: Interpretive Data Percent cell count reference ranges are not reported, since discordance with absolute values may lead to misinterpretation of CBC data. Current Interpretive Data was last revised on 2017. Testing performed by: [facility] [place] [address] Imm gran pct 0.2 % [facility] Comment: Interpretive Data Percent cell count reference ranges are not reported, since discordance with absolute values may lead to misinterpretation of CBC data. Current Interpretive Data was last revised on 2017. Testing performed by: [facility] [place] [address] Lymphocyte pct 37.2 % [facility] Comment: Interpretive Data Percent cell count reference ranges are not reported, since discordance with absolute values may lead to misinterpretation of CBC data. Current Interpretive Data was last revised on 2017. Testing performed by: [facility] [place] [address] Monocyte pct 9.6 % CERNER Comment: Interpretive Data Percent cell count reference ranges are not reported, since discordance with absolute values may lead to misinterpretation of CBC data. Current Interpretive Data was last revised on 2017. Testing performed by: [facility] [place] [address] Eosinophil pct 3.9 % [facility] Comment: Interpretive Data Percent cell count reference ranges are not reported, since discordance with absolute values may lead to misinterpretation of CBC data. Current Interpretive Data was last revised on 2017. Testing performed by: [facility] [place] [address] Basophil pct 1.3 % [facility] Comment: Interpretive Data Percent cell count reference ranges are not reported, since discordance with absolute values may lead to misinterpretation of CBC data. Current Interpretive Data was last revised on 2017. Testing performed by: [facility] [place] [address] Blood 08/25/2024 9:27 AM CDT 08/25/2024 9:27 AM CDT us Peter Waters MD LAB BLOOD ORDERAB LES Final Result [facility] [address] [place] [address] * CBC with auto differential (08/25/2024 9:27 AM CDT) WBC 5.3 3.8 - 9.9 K/cumm Comment:Testing performed by : [facility] [place] [address] Hgb 12.2 11.9 - 15.5 g/dL CERNER CH Comment:Testing performed by : [facility] [place] [address] Hct 37.3 35.6 - 45.5 % CERNER CH Comment:Testing performed by : [facility] [place] [address] Plt 249 150 - 400 K/cumm CERNER CH Comment:Testing performed by : [facility] [place] [address] MPV 9.9 9.1 - 12.3 fL CERNER CH Comment:Testing performed by : [facility] [place] [address] RBC 4.12 3.90 - 5.20 M/cumm CERNER CH Comment:Testing performed by : [facility] [place] [address] MCV 90.5 81.3 - 96.4 fL CERNER CH Comment:Testing performed by : [facility] [place] [address] MCH 29.6 27.1 - 33.3 pg CERNER CH Comment:Testing performed by : [facility] [place] [address] MCHC 32.7 32.3 - 35.7 g/dL CERNER CH Comment:Testing performed by : [facility] [place] [address] RDW CV 13.6 11.1 - 14.9 % CERNER CH Comment:Testing performed by : [facility] [place] [address] RDW SD 45.0 35.7 - 48.1 fL CERNER CH Comment:Testing performed by : [facility] [place] [address] NRBC abs 0.00 0.00 - 0.01 K/cumm CERNER CH Comment:Testing performed by : [facility] [place] [address] Blood 08/25/2024 9:27 AM CDT 08/25/2024 9:27 AM CDT Peter Waters MD LAB BLOOD ORDERAB LES Final Result [facility] [address] [place] [address] * Comprehensive metabolic panel (08/25/2024 9:27 AM CDT) Sodium 139 135 - 145 mmol/L Comment:Testing performed by : [facility] [place] [address] Potassium, pl 4.6 3.3 - 4.9 mmol/L [facility] Comment:Testing performed by : [facility] [place] [address] Chloride 102 97 - 110 mmol/L [facility] Comment:Testing performed by : [facility] [place] [address] CO2 26 22 - 32 mmol/L [facility] Comment:Testing performed by : [facility] [place] [address] Anion gap 11 2 - 15 mmol/L [facility] Comment:Testing performed by : [facility] [place] [address] BUN 17 6 - 25 mg/dL [facility] Comment:Testing performed by : [facility] [place] [address] Creatinine 0.68 0.60 - 1.10 mg/dL [facility] Comment:Testing performed by : [facility] [place] [address] Glucose 158 70 - 199 mg/dL [facility] Comment: Interpretive Data Fasting glucose >/= 126 [...] classification and Diagnosis of Diabetes Diabetes Care 202; 46: S19-S40. Current interpretive data was last revised 2022. Testing performed by: [facility] [place] [address] Calcium 9.1 8.5 - 10.3 mg/dL C[facility] CH Comment:Testing performed by : [facility] [place] [address] Bilirubin, total 0.8 0.1 - 1.2 mg/dL C[facility] CH Comment:Testing performed by : [facility] [place] [address] Protein, pl 6.7 6.5 - 8.5 g/dL C[facility] CH Comment:Testing performed by : [facility] [place] [address] Albumin 4.1 3.5 - 5.0 g/dL C[facility] CH Comment:Testing performed by : [facility] [place] [address] Alk phos 83 40 - 130 Units/L [facility] CH Comment:Testing performed by : [facility] [place] [address] ALT 24 7 - 45 Units/L C[facility] CH Comment:Testing performed by : [facility] [place] [address] AST 26 10 - 45 Units/L [facility] CH Comment:Testing performed by : [facility] [place] [address] Blood 08/25/2024 9:27 AM CDT 08/25/2024 9:27 AM CDT Peter Waters MD LAB BLOOD ORDERAB LES Final Result [facility] [address] [place] [address] * SCAN - RADIOLOGY/IMAGING (06/27/2024) Anatomical Region Laterality Modality Other us Provider Scanning Final Result * SCAN - RADIOLOGY/IMAGING (06/27/2024) Anatomical Region Laterality Modality Other us Provider Scanning Final Result * Diagnostic Mammogram Bilateral W Vik (05/26/2024 1:46 PM AGRICULTURAL EQUIPMENT SALES MANAGER) Anatomical Region Laterality Modality Breast Bilateral Mammography 05/26/2024 1:49 PM AGRICULTURAL EQUIPMENT SALES MANAGER Impressions 05/26/2024 1:49 PM AGRICULTURAL EQUIPMENT SALES MANAGER No evidence of malignancy in either breast. OVERALL FINAL ASSESSMENT: BI-RADS Category 2: Benign. RECOMMENDATION: Annual diagnostic mammography is recommended. Electronically signed by: Kaila Estrada M.D. Narrative 05/26/2024 1:49 PM AGRICULTURAL EQUIPMENT SALES MANAGER EXAMINATION: BILATERAL DIGITAL DIAGNOSTIC MAMMOGRAM INCLUDING CAD [...] signed by: Kaila Estrada M.D. Lizzy Lazcano NP IMG MAMMO PROCEDURES Final Result * Hepatitis C antibody Blood (07/07/2023 9:36 AM AGRICULTURAL EQUIPMENT SALES MANAGER) Hep C Ab Nonreactive Nonreactive [facility] Comment: Interpretive Data Nonreactive: Antibodies to [...] revised on 2019. Blood 07/07/2023 9:36 AM AGRICULTURAL EQUIPMENT SALES MANAGER 07/07/2023 11:59 AM AGRICULTURAL EQUIPMENT SALES MANAGER Jagruti Kumar MD LAB MICROBIOLOGY - GENERAL ORDER TY Final Result [facility] [address] [place] [address] from Last 3 Months or Most Recently Relevant to Health Maintenance Insurance T MEDICARE MEDICARE [facility] Address: [address] [address] [facility] MEDICARE T MEDICARE [facility] MEDICARE Advance Directives For more information, please contact: [phone] Documents on File Type Date Recorded Patient Review Assistant Expl anation ADVANCE DIRECTIVE 02/13/2023 7:58 AM Power of Monorail Charger Operator-Medical ADVANCE DIRECTIVE 02/13/2023 7:58 AM Living Will Care Teams Clinical Operations Leader Relationship Specialty Start Date End Date Elis Staton MD [address] [facility] [address] [place] [address] PCP - General Radiation Oncology 03/19/23 Cuca Plummer MD [address] [facility] [address] Internal Medicine 11/21/22 Claudia Renee MD [address] [place] [address] Referring Physician Gynecology 12/02/22 Lizzy Lazcano NP [address] [place] [address] Nurse Practitioner Nurse Practitioner 12/22/22 Kirti Degroot MD PhD [address] [place] [address] Surgeon Surgical Oncology 03/02/23 Peter Waters MD [address], [address] [address] Consulting Physician Medical Oncology 03/02/23 Elis Staton MD [address], [facility] [address] [place] [address] Radiation Oncologist Radiation Oncology 03/18/23 Ángel Nino MD [address] [place] [address] Resident Radiation Oncology 03/18/23 Gin Gauthier, PhD [address] [facility] [address] [place] [address] Nurse Practitioner Radiation Oncology 04/13/23
--- OUTSIDE RECORDS SUMMARY | 2024-09-01 15:53 | XMS_ITS | Encounter Summary ---
Author Organization [facility] Address [address] [place] [address] Care Team Providers Care Telecommunication Tower Technician Name Role Phone Unavailable Primary Care Provider Unavailabl e Reason for Visit * Diagnostic Imaging (Routine) - Closed Specialty Diagnoses / Procedures Referred By Kal beltre Referred To Contact Procedures Breast Imaging Screening Outside Reference Lizzy Lazcano NP Phone: tel: fax: Referral ID Status Reason Start Date Expiration Date Visits Re quested Visits Authorized [id number] Closed 11/28/2022 12/28/2023 1 1 Encounter Details Date Type Department Care Team (Late st Contact Info) Description 06/09/2017 Hospital Encounter [facility] [address] [place] [address] Social History Tobacco Use Types Packs/Day Years [...] often do you attend chur ch or faith services? 1 to 4 times per year 08/24/2024 Do you belong to any clubs o r organizations such as baptism groups, unions, fraternal or athletic groups, or [...] Recorded Patient Health Questionnaire-2 Score 0 08/24/2024 [facility] Occupat ional Health - Occupational Stress [...] place to sleep or slept in a senior living (including now)? No 08/26/2023 Personal Safety Answer Date Recorded Have you ever been in or are you currently in a harmful physical or emotional relationship or is someone making you feel afraid or unsafe? Denies 02/13/2023 Comments No Sex and Gender Information Value Date Recorded Sex Assigned at Not on file Legal Sex Female 7:05 PM HOSPICE SUPERINTENDENT Gender Identity Not on file Sexual Orientation [...] BREAST IMAGING MG SCREENING OUTSIDE REFERENCE Routine 06/09/2017 12:00 AM HOSPICE SUPERINTENDENT documented in this encounter Results * Breast Imaging Screening Outside Reference (06/09/2017 12:00 AM HOSPICE SUPERINTENDENT) Impressions [facility] - 11/28/2022 12:28 PM CDT These images are for Reference purposes only and have not been reviewed by [facility] Radiology. There will be no report generated by a [facility] Radiologist. Narrative [facility] - 11/28/2022 12:28 PM CDT EXAMINATION: Images For Reference Purposes Only us Lizzy Lazcano NP IMG MAMMO PROCEDURES Final Result [facility] documented in this encounter Visit Diagnoses Not on filedocumented in this encounter
--- OUTSIDE RECORDS SUMMARY | 2024-09-01 15:53 | XMS_ITS | Encounter Summary ---
Author Organization [facility] Address [address] [place] [address] Care Team Providers Care Rotational Moulding Operator Name Role Phone Unavailable Primary Care Provider Unavailabl e Reason for Visit * Diagnostic Imaging (Routine) - Closed Specialty Diagnoses / Procedures Referred By Kal beltre Referred To Contact Procedures Breast Imaging Screening Outside Reference Lizzy Lazcano NP Phone: tel: fax: Referral ID Status Reason Start Date Expiration Date Visits Re quested Visits Authorized [id number] Closed 11/28/2022 12/28/2023 1 1 Encounter Details Date Type Department Care Team (Late st Contact Info) Description 10/27/2018 Hospital Encounter [facility]iology [facility] [address] [place] [address] Social History Tobacco Use Types Packs/Day [...] often do you attend chur ch or jehovah's witness services? 1 to 4 times per year 08/24/2024 Do you belong to any clubs o r organizations such as alevism groups, unions, fraternal or athletic groups, or [...] Recorded Patient Health Questionnaire-2 Score 0 08/24/2024 [facility] of Occupat ional Health - Occupational [...] place to sleep or slept in a fci (including now)? No 08/26/2023 Personal Safety Answer Date Recorded Have you ever been in or are you currently in a harmful physical or emotional relationship or is someone making you feel afraid or unsafe? 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 There will be no report generated by a [facility] Radiologist. Narrative [facility]MO[facility] - 11/28/2022 12:27 PM CDT EXAMINATION: Images For Reference Purposes Only us Lizzy Lazcano NP IMG MAMMO PROCEDURES Final Result [facility] documented in this encounter Visit Diagnoses Not on filedocumented in this encounter
--- OUTSIDE RECORDS SUMMARY | 2024-09-01 15:53 | XMS_ITS | Patient Health Record ---
Author Organization [facility] Address [address] [facility] [place] [address] Care Team Providers Care Manager Export Name Role Phone Kaylee Gonzáles Primary Care Provider Jagruti Sexton Unavailable [phone] Allergies Allergen (clinical drug ingredient) Drug/Non Drug Allergy documented on EMR Reaction Allergy Type Onset Date Status Black [place] Flavor Unknown Drug Allergy Active lisinopril Lisinopril Unknown Drug Allergy Activ e Psyllium Unknown Drug Allergy Active varicella zoster virus glycoprotein E Shingrix Unknown Drug Allergy Active Results Component Value Reference Range Notes CMP(COMPREHENSIVE METABOLIC PANEL) Reviewed date:05/24/2024 04:50:45 PM Interpretation:Lab Result Generalized Performing Lab:[facility], [address] [place] [address], [address] Notes/Report: Sodium 138 133-146 mmol/L Potassium 4.2 [...] 13-39 units/L Bilirubin, Total 1.1 0.2-1.2 mg/dL CBC W/DIFF Reviewed date:05/24/2024 04:50:46 PM Interpretation:Lab Result Generalized Performing Lab:[facility], [address] [place], [address] Notes/Report: WBC 3.2 3.5-10.5 10'3/uL RBC 4.29 [...] results are expected. CMP(COMPREHENSIVE METABOLIC PANEL) Reviewed date:08/23/2024 09:56:19 AM Interpretation:Lab Result Generalized Performing Lab:[facility], [address] [place], [address] Notes/Report: Sodium 141 133-146 mmol/L Potassium 4.2 [...] date:08/23/2024 09:56:19 AM Interpretation:Lab Result Generalized Performing [facility], [address] [place], [address] Notes/Report: WBC 4.2 3.5-10.5 10'3/uL RBC 4.28 [...] the clinical context of the individual patient: [email or web address] w auto diff Reviewed date:02/22/2024 07:25:54 PM Interpretation:Lab Result Generalized Performing Lab:[facility] , [address] [place] [address]. [facility] [address] Notes/Report: WBC 3.7 3.8-9.9 K/cumm Hgb 14.1 11.9-15.5 g/dL Hct 43.5 35.6-45.5 % Platelet Ct 229 150-400 K/cumm MPV 11.1 9.1-12.3 fL RBC 4.66 3.90-5.20 M/cumm MCV 93.3 81.3-96.4 fL MCH 30.3 27.1-33.3 pg MCHC 32.4 32.3-35.7 g/dL RDW CV 13.5 11.1-14.9 % RDW SD 45.6 35.7-48.1 fL NRBC Abs Auto 0.00 0.00-0.01 K/cumm Comprehensive metabolic pane l (CMP) Reviewed date:02/22/2024 07:25:54 PM Interpretation:Lab Result Generalized Performing Lab:[facility] , [address] [place] [address]. [facility] [id number] Notes/Report: Sodium 140 135-145 mmol/L Plasma Potassium 4.3 3.3-4.9 mmol/L Chloride 104 97-110 mmol/L Total CO2 24 22-32 mmol/L Anion Gap 12 2-15 mmol/L BUN 10 6-25 mg/dL Creatinine 0.83 0.60-1.10 mg/dL Glucose 170 70-199 mg/dL Interpretive Data Fasting glucose >/= 126 mg/dl [...] Current interpretive data was last revised 2022. Total Calcium 9.4 8.5-10.3 mg/dL Total Bilirubin 1.4 0.1-1.2 mg/dL Plasma Total Protein 7.2 6.5-8.5 g/dL Albumin 4.5 3.5-5.0 g/dL Alkaline Phosphatase 87 40-130 Units/L ALT 34 7-45 Units/L AST 35 10-45 Units/L Differential Automated Reviewed date:02/22/2024 07:26:14 PM Interpretation: Performing Lab:[facility] , [address] [place] [address]. [facility] [address] Notes/Report: Neut Abs 1.7 1.5-6.5 K/cumm ImmGran Abs 0.0 0.0-0.1 K/cumm Lymphocyte Abs 1.3 0.8-3.3 K/cumm Haines Abs 0.5 0.2-0.8 K/cumm Eos Abs 0.1 0.0-0.5 K/cumm Baso Abs 0.0 0.0-0.1 K/cumm Neut Pct 45.5 Interpretive Data Percent cell count reference ranges are not reported, since discordance with absolute values may lead to misinterpretation of CBC data. Current Interpretive Data was last revised on 2017. ImmGran Pct 0.0 Interpretive Data Percent cell count reference ranges are not reported, since discordance with absolute values may lead to misinterpretation of CBC data. Current Interpretive Data was last revised on 2017. Lymph Pct 35.2 Interpretive Data Percent cell count reference ranges are not reported, since discordance with absolute values may lead to misinterpretation of CBC data. Current Interpretive Data was last revised on 2017. Haines Pct 14.4 Interpretive Data Percent cell count reference ranges are not reported, since discordance with absolute values may lead to misinterpretation of CBC data. Current Interpretive Data was last revised on 2017. Eos Pct 3.8 Interpretive Data Percent cell count reference ranges are not reported, since discordance with absolute values may lead to misinterpretation of CBC data. Current Interpretive Data was last revised on 2017. Baso Pct 1.1 Interpretive Data Percent cell count reference ranges are not reported, since discordance with absolute values may lead to misinterpretation of CBC data. Current Interpretive Data was last revised on 2017. eGFR Reviewed date:02/22/2024 07:26:14 PM Interpretation: Performing Lab:[facility] , [address] [place] [address]. [facility] [address] Notes/Report: eGFR 76 >=60 mL/min/1.73 m2 Interpretive Data Reference Interval Normal >/= 90 [...] Current interpretive data was last reviewed 2021. 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) Active confirmed Problem 020765218 Osteoarthritis, unspecified osteoarthritis type, unspecified site (M19.90) Active confirmed Vital Signs Heart Rate 89 /min 08/22/2024 Temperature 98.3 degrees Fahrenheit 08/22/2024 Height-cm 157.48 cm 08/22/2024 Blood pressure diastolic 80 mm Hg 08/22/2024 Oximetry 95 % 08/22/2024 Weight-kg 73.57 kg 08/22/2024 Height 62 in 08/22/2024 Blood pressure systolic 132 mm Hg 08/22/2024 Weight 162.2 lbs 08/22/2024 BMI 29.66 kg/m2 08/22/2024 Encounters Encounter Location Date Provider Diagnosis [facility] [address] [place] [address] 09/21/2023 Jagruti Kumar Other rheumatoid arthritis with rheumatoid factor of multiple sites M05.89 ; Osteoarthritis, unspecified osteoarthritis type, unspecified site M19.90 ; High risk medication use Z79.899 and History of retinopathy Z86.69 [facility] [address] [place] [address] 11/18/2023 Jagruti Kumar Other rheumatoid arthritis with rheumatoid factor of multiple sites M05.89 ; Osteoarthritis, unspecified osteoarthritis type, unspecified site M19.90 ; High risk medication use Z79.899 and History of retinopathy Z86.69 [facility] [address] [place] [address] 02/22/2024 Jagruti Kumar Other rheumatoid arthritis with rheumatoid factor of multiple sites M05.89 ; Osteoarthritis, unspecified osteoarthritis type, unspecified site M19.90 ; High risk medication use Z79.899 and History of retinopathy Z86.69 [facility] [address] [place] [address] 05/23/2024 Jagruti Kumar Other rheumatoid arthritis with rheumatoid factor of multiple sites M05.89 ; Osteoarthritis, unspecified osteoarthritis type, unspecified site M19.90 ; High risk medication use Z79.899 and History of retinopathy Z86.69 [facility] [address] [place] [address] 08/22/2024 Jagruti Kumar Other rheumatoid arthritis with rheumatoid factor of multiple sites M05.89 ; Osteoarthritis, unspecified osteoarthritis type, unspecified site M19.90 ; High risk medication use Z79.899 and History of retinopathy Z86.69 [facility] [address] [place] [address] 09/22/2023 Jagruti Kumar [facility] [address] [place] [address] 12/08/2023 Jagruti Kumar Assessments Encounter Date Diagnosis (ICD Code) Assessment Notes Treatment Notes Treatment Clinical Notes Section Notes 09/21/2023 Other rheumatoid arthritis with rheumatoid factor of multiple sites (ICD-10 - M05.89) improving, labs todayl if normal, consider increasing arava to 20mg/day, return in 2 months, avoid plaquenil due to hx of retinopathy 11/18/2023 Other rheumatoid arthritis with rheumatoid factor of multiple sites (ICD-10 - M05.89) improving, labs today, continue arava 20mg/day, return in 3 months avoid plaquenil due to hx of retinopathy 02/22/2024 Other rheumatoid arthritis with rheumatoid factor of multiple sites (ICD-10 - M05.89) mildly symptomatic, continue arava, labs today, return in 3 months avoid plaquenil due to hx of retinopathy 05/23/2024 Other rheumatoid arthritis with rheumatoid factor of multiple sites (ICD-10 - M05.89) mildly symptomatic, continue arava, labs today, return in 3 months avoid plaquenil due to hx of retinopathy 08/22/2024 Other rheumatoid arthritis with rheumatoid factor [...] avoid plaquenil due to hx of retinopathy 11/18/2023 Osteoarthritis, unspecified osteoarthritis type, unspecified site (ICD-10 - M19.90) improving, labs today, continue arava 20mg/day, return in 3 months avoid plaquenil due to hx of retinopathy 09/21/2023 Osteoarthritis, unspecified osteoarthritis type, unspecified site (ICD-10 - M19.90) improving, labs todayl if normal, consider increasing arava to 20mg/day, return in 2 months, avoid plaquenil due to hx of retinopathy 09/21/2023 High risk medication use (ICD-10 - Z79.899) improving, labs todayl if normal, consider increasing arava to 20mg/day, return in 2 months, avoid plaquenil due to hx of retinopathy 11/18/2023 High risk medication use (ICD-10 - Z79.899) improving, labs today, continue arava 20mg/day, return in 3 months avoid plaquenil due [...] avoid plaquenil due to hx of retinopathy 11/18/2023 History of retinopathy (ICD-10 - Z86.69) improving, labs today, continue arava 20mg/day, return in 3 months avoid plaquenil due to hx of retinopathy 09/21/2023 History of retinopathy (ICD-10 - Z86.69) improving, labs todayl if normal, consider increasing arava to 20mg/day, return in 2 months, avoid plaquenil due to hx of retinopathy Plan Of Treatment Pending Test Test Name Order Date X ray : Foot, left 07/07/2023 X ray : Foot, right 07/07/2023 X ray : Hands, bilateral 07/07/2023 X ray : Shoulder, left 07/07/2023 G-6-PD, Quant, Blood and RBC 07/07/2023 CBC With Differential/Platelet CBC With Differential/Platelet Sedimentation Rate-Westergren 07/07/2023 C-Reactive Protein, Quant 07/07/2023 Sjogren's Ab, Anti-SS-A/-SS-B 07/07/2023 GINA w/Reflex 07/07/2023 Hepatitis BsAg 07/07/2023 Hepatitis C antibody 07/07/2023 Chem-Comprehensive 07/07/2023 Chem-Comprehensive 09/21/2023 CMP(COMPREHENSIVE METABOLIC PANEL) 11/17 CMP(COMPREHENSIVE METABOLIC PANEL) 02/21 CBC W/DIFF 02/22/2024 CBC W/DIFF 11/18/2023 Next Appt Details Provider Name:Jagruti Kumar, 11/21 10:45:00 AM, [address] [facility] [address], [place], [address], Insurance Providers Payer Name Payer Address Payer Phone Subscriber Number Group Number Insured Name Patient Relationship to Insured Coverage Start Date Coverage End Date [employer] Medicare Ppo [address] [place] [address] [id number] Emma Monteiro Self - patient is the insured Medical (General) History Medical History History ICD Code retinopathy (left) allergic rhinitis shingles osteoarthritis hypertension hyperlipidemia diabetes BPPV SHAY breast cancer Surgical History Surgery Date(Month/Year) C section, vitrectomy, cataract, partial mastectomy
== END 2024-09-01 15:01 | disposition home or self-care (01) ==
PROVIDERS: PCP Family Medicine; Visit Provider Internal Medicine
DX: Z78.0 Asymptomatic menopausal state (principal)
CPT/HCPCS: 77080